=== PATIENT | male | born 1935 | race Caucasian/White ===

== ENCOUNTER 2017-02-12 20:20 | Emergency (ER) | payer MEDICARE, BC ==
--- NOTE | 2017-02-12 20:58 | Emergency Department Record ---
History of Present Illness - General Chief complaint: Lower Extremity Pain Stated complaint: RT LEG PAIN Time Seen by Provider: 02/12/17 20:52 Source: Patient Mode of Arrival: Ambulatory Limitations: No limitations - History of Present Illness Initial comments: 81 yo male presents to ED with a CC of right calf pain described as "aching" following injury while attempting to get out of his truck 2-3 days ago. Patient [place] traumatic injury (fall, direct blow), but feels as though he may have twisted the calf muscles resulting in pain. Patient reports that in the morning his symptoms are mild, but worsen throughout the day with ambulation. Patient denies more swelling than usual, and denies history of DVT. Patient is also on Eliquis for atrial fibrillation. MD Complaint: Extremity pain Onset/Timin -: Days(s) Location: Right, Lower Leg Radiation: Distal Improves with: Elevation, Immobilization Worsens with: Walking, Weight bearing - Related Data Home Medications Medication Instructions Recorded Confirmed Last Taken Aspirin [Aspirin EC] 81 mg PO DAILY 02/28/15 02/12/17 12/18/15 Naproxen Sodium [Aleve] 220 mg PO BID cap 08/19/16 02/12/17 Unknown Onabotulinumtoxina [Botox] 1 unit IJ ASDIR vial 08/19/16 02/12/17 Unknown Allergies Allergy/AdvReac Type Severity Reaction Status Date / Time atorvastatin calcium Allergy Intermediate SWELLING Unverified 01/29/17 09:45 [From Lipitor] (GENERAL) Penicillins Allergy Intermediate PT UNSURE Unverified 01/29/17 09:45 OF REACTION Travel Screening - Travel/Exposure Within Last 30 Days Have you traveled within the last 30 days?: No Review of Systems Constitutional: Denies: Chills, Fever, Malaise, Night sweats Eyes: Denies: Eye discharge, Eye pain ENT: Denies: Congestion, Ear pain, Epistaxis Respiratory: Denies: Cough, Dyspnea Cardiovascular: Denies: Chest pain, Dyspnea on exertion Endocrine: Denies: Fatigue, Heat or cold intolerance Gastrointestinal: Denies: Abdominal pain, Nausea, Vomiting Genitourinary: Denies: Incontinence, Retention Musculoskeletal: Reports: Myalgia. Denies: Arthralgia, Back pain, Gout, Joint swelling Skin: Denies: Bruising, Change in color Neurological: Denies: Abnormal gait, Confusion, Headache, Seizure Psychiatric: Denies: Anxiety Hematological/Lymphatic: Reports: Easy bleeding, Easy bruising. Denies: Anemia , Blood Clots Past Medical History - SOCIAL HISTORY Smoking Status: Never smoker Alcohol Use: None Drug Use: None - RESPIRATORY Hx Respiratory Disorders: Yes Hx Pneumonia: Yes (age 1) - CARDIOVASCULAR Hx Cardio Disorders: Yes Hx Chest Pain: Yes (2 days) Hx Hypertension: Yes Hx Irregular Heartbeat: Yes (Afib after knee surgery years ago) Comment:: High cholestrol - NEURO Hx Neuro Disorders: No - GI Hx GI Disorders: No - Hx Genitourinary Disorders: No - ENDOCRINE Hx Endocrine Disorders: No Hx Diabetes: No Hx Thyroid Disease: No - MUSCULOSKELETAL Hx Musculoskeletal Disorders: Yes Hx Arthritis: Yes - PSYCH Hx Psych Problems: No - HEMATOLOGY/ONCOLOGY Hx Hematology/Oncology Disorders: No Family Medical History Any Significant Family History?: Yes Hx Heart Disease: Father Physical Exam - General General Appearance: Alert, Oriented x3, Cooperative, No acute distress, Other ( ambulates with redman, weight bears at his baseline) Limitations: No limitations - Head Head exam: Atraumatic, Normocephalic, Normal inspection Head exam detail: negative: Abrasion, Contusion, Clark's sign, General tenderness, Hematoma, Laceration - Eye Eye exam: Normal appearance. negative: Conjunctival injection, Periorbital swelling, Periorbital tenderness, Scleral icterus - ENT Ear exam: negative: Auricular hematoma, Auricular trauma Nasal Exam: negative: Active bleeding, Discharge, Dried blood, Foreign body Mouth exam: negative: Drooling, Laceration, Muffled voice, Tongue elevation - Neck Neck exam: Normal inspection. negative: Meningismus, Tenderness - Respiratory Respiratory exam: Normal lung sounds bilaterally. negative: Rales, Respiratory distress, Rhonchi, Stridor - Cardiovascular Cardiovascular Exam: Regular rate, Normal rhythm, Normal heart sounds - GI/Abdominal GI/Abdominal exam: Soft. negative: Rebound, Rigid, Tenderness - Rectal Rectal exam: Deferred - exam: Deferred - Extremities Extremities exam: Calf tenderness, Full ROM, Pedal edema (R>L, 1+ bilaterally), Tenderness (TTP proximal calf) - Back Back exam: Denies: CVA tenderness (R), CVA tenderness (L) - Neurological Neurological exam: Alert, Normal gait, Oriented X3 - Psychiatric Psychiatric exam: Normal affect, Normal mood - Skin Skin exam: Normal color. negative: Abrasion Type of lesion: negative: abrasion Course Vital Signs 02/12/17 20:31 Temperature 98.0 F Pulse Rate [ 80 Pulse Ox Probe] Respiratory 16 Rate Blood Pressure 142/98 [Left Arm] Pulse Ox 96 - Reevaluation(s) Reevaluation #1: 02/12/17 20:57 Diagnosis options were discussed with the patient and his daughter, discussed D- Dimer vs. transfer for doppler, will obtain D-Dimer and discuss options if positive as the patient is overall low-risk for DVT as he takes Eliquis as well as Aspirin daily. Reevaluation #2: 02/12/17 21:37 D-Dimer resulted and is 4.72 Patient is already receiving treatment for DVT taking Eliquis 5 mg BID, in discussion with the family, will d/c home as the patient has no clinical symptoms of PE at this time. Will instruct the patient to return for doppler at 11:00. 02/12/17 21:44 Disposition Disposition: Discharge Clinical Impression: Right calf pain Disposition: Home, Self-Care Condition: (2) Stable Instructions: Leg Cramps (ED) Additional Instructions: Return to ED if your symptoms worsen or if you have any concerns. Return tomorrow at 11:00 for doppler the right lower extremity. Continue Eliquis as directed. Forms: Patient Portal Access Time of Disposition: 21:43
== END 2017-02-12 21:59 | disposition home or self-care (01) ==
LOC: ER 20:20
DX: M79.661 Pain in right lower leg (principal); I48.91 Unspecified atrial fibrillation; R79.89 Other specified abnormal findings of blood chemistry; Z79.01 Long term (current) use of anticoagulants
CPT/HCPCS: 85379; 99283

== ENCOUNTER 2017-02-13 10:36 | Emergency (ER) | payer MEDICARE, BC ==
--- NOTE | 2017-02-13 10:43 | Emergency Department Record ---
History of Present Illness - General Chief Complaint: Recheck - Other Stated Complaint: ULTRASOUND/LEG PAIN Time Seen by Provider: 02/13/17 10:37 Source: Patient Mode of arrival: Ambulatory Limitations: No limitations - History of Present Illness Initial Comments: 81 yo male presents for a recheck of his right calf pain and a venous doppler to rule out DVT. He has had pain for about 3 days. It was first noted getinng out of his vehicle. He has noticed mild swelling and pain with weight bearing. No cough, chest pain or shortness of breath. No history of DVT or PE. He is on Eliquis for AFib. -: Days(s) (3) Initial Visit For: Other Returns Today for: Wound recheck, Other Symptoms Since Prior Visit: No new symptoms Associated Symptoms: None - Related Data Home Medications Medication Instructions Recorded Confirmed Last Taken Aspirin [Aspirin EC] 81 mg PO DAILY 02/28/15 02/13/17 12/18/15 Naproxen Sodium [Aleve] 220 mg PO BID cap 08/19/16 02/13/17 Unknown Onabotulinumtoxina [Botox] 1 unit IJ ASDIR vial 08/19/16 02/13/17 Unknown Allergies Allergy/AdvReac Type Severity Reaction Status Date / Time atorvastatin calcium Allergy Intermediate SWELLING Unverified 01/29/17 09:45 [From Lipitor] (GENERAL) Penicillins Allergy Intermediate PT UNSURE Unverified 01/29/17 09:45 OF REACTION Review of Systems Constitutional: Denies: Chills, Fever, Weakness Eyes: Denies: Eye discharge ENT: Denies: Congestion, Throat pain Respiratory: Denies: Cough Cardiovascular: Reports: As per HPI, Edema. Denies: Chest pain, Palpitations, Syncope Endocrine: Denies: Fatigue Gastrointestinal: Denies: Abdominal pain, Diarrhea, Nausea, Vomiting Genitourinary: Denies: Dysuria, Frequency, Hematuria Musculoskeletal: Reports: As per HPI, Arthralgia, Myalgia Skin: Denies: Bruising, Change in color, Rash Neurological: Denies: Headache Psychiatric: Denies: Anxiety Hematological/Lymphatic: Denies: Blood Clots, Easy bleeding, Easy bruising, Swollen glands Past Medical History - SOCIAL HISTORY Smoking Status: Never smoker Drug Use: None - RESPIRATORY Hx Respiratory Disorders: Yes Hx Pneumonia: Yes (age 1) - CARDIOVASCULAR Hx Cardio Disorders: Yes Hx Chest Pain: Yes (2 days) Hx Hypertension: Yes Hx Irregular Heartbeat: Yes (Afib after knee surgery years ago) Comment:: High cholestrol - NEURO Hx Neuro Disorders: No - GI Hx GI Disorders: No - Hx Genitourinary Disorders: No - ENDOCRINE Hx Endocrine Disorders: No Hx Diabetes: No Hx Thyroid Disease: No - MUSCULOSKELETAL Hx Musculoskeletal Disorders: Yes Hx Arthritis: Yes - PSYCH Hx Psych Problems: No - HEMATOLOGY/ONCOLOGY Hx Hematology/Oncology Disorders: No Family Medical History Hx Heart Disease: Father Physical Exam - General General Appearance: Alert, Oriented x3, Cooperative, No acute distress Limitations: No limitations - Head Head exam: Normal inspection - Eye Eye exam: Normal appearance - ENT ENT exam: Normal exam Ear exam: Normal external inspection Nasal Exam: Normal inspection - Neck Neck exam: Normal inspection - Respiratory Respiratory exam: Normal lung sounds bilaterally. negative: Respiratory distress - Cardiovascular Cardiovascular Exam: Regular rate, Normal rhythm, Normal heart sounds Peripheral Pulses: 2+: Radial (R) - GI/Abdominal GI/Abdominal exam: Soft. negative: Tenderness - Rectal Rectal exam: Deferred - exam: Deferred - Extremities Extremities exam: Calf tenderness, Full ROM, Normal capillary refill, Pedal edema (mild right compared to left), Tenderness. negative: Normal inspection - Back Back exam: Denies: CVA tenderness (R), CVA tenderness (L) - Neurological Neurological exam: Alert, Normal gait, Oriented X3, Reflexes normal - Psychiatric Psychiatric exam: Normal affect, Normal mood - Skin Skin exam: Dry, Intact, Normal color, Warm Course - Reevaluation(s) Reevaluation #1: The XR of the LE was negative for acute process The Venous Doppler demonstrates thrombus in the infra-popliteal vessels, non in the popliteal or more proximal. The patient is on Eliquis already 5mg daily. 02/13/17 12:28 Reevaluation #2: The case was reviewed with the patient's PCP Daisy Bernal The patient can increase his Eliquis to a therapeutic 10mg BID He will have FU established Thursday and Thursday for rechecks as well. He will be given bleeding precautions and reasons to return to the ED 02/13/17 13:26 Reevaluation #3: The labs were reviewed Hgb 12.0 CR is 1.5 similar to prior of 1.4 02/13/17 14:01 Medical Decision Making - Lab Data Result diagrams: 02/13/17 13:36 02/13/17 13:36 Disposition Disposition: Discharge Clinical Impression: DVT (deep venous thrombosis) Qualifiers: DVT location: lower extremity Affected thrombotic vein of extremity: unspecified lower extremity distal vein Laterality: right Chronicity: acute Qualified Code(s): I82.4Z1 - Acute embolism and thrombosis of unspecified deep veins of right distal lower extremity Disposition: Home, Self-Care Condition: (1) Good Instructions: Deep Vein Thrombosis Prevention (ED) Additional Instructions: Increase your Eliquis to 10mg twice daily Follow up Thursday and Thursday as scheduled Return if you have increased pain, swelling, or concerns Return if you see any signs of bleeding. Your appointment with Stephanie in the [facility] is February 18 at 10: 20am Your appointment with Dr Garza in the specialty clinic is on February 25 at 8: 45am Forms: Patient Portal Access Time of Disposition: 13:28
[2017-02-13 13:41] LABS: BASO % 0.6 % (0-6); EOS % 5.4 % (0-6); GRAN % 61.8 % (47-80); HEMATOCRIT 37.2 % (42.0-52.0); LYMPH % 22.8 % (16-45); MEAN CELL VOLUME 92.1 fl (81-97); MEAN CORPUSCULAR HEMOGLOBIN 29.7 pg (27-33); MEAN CORPUSCULAR HGB CONC 32.3 g/dl (32-36); MEAN PLATELET VOLUME 9.1 fl (7.4-10.4); MONO % 9.4 % (0-9); PLATELET COUNT 213 K/uL (130-400); RED BLOOD COUNT 4.04 M/uL (4.40-5.70); RED CELL DISTRIBUTION WIDTH 13.5 % (11.5-14.5); WHITE BLOOD COUNT W/O DIFF 5.2 K/uL (4.2-12.2)
[2017-02-13 13:54] LABS: ALBUMIN 3.5 gm/dL (3.5-5.0); ANION GAP 3.6 (7-16); BILIRUBIN,TOTAL 0.76 mg/dL (0.2-1.3); CARBON DIOXIDE 27.4 mmol/L (22-30); CREATININE 1.5 mg/dL (0.66-1.25); INR 1.12; PARTIAL THROMBOPLASTIN TIME 32.3 SECONDS (24.5-39.1); PROTHROMBIN TIME (PATIENT) 12.7 SECONDS (9.5-12.1); TOTAL PROTEIN 6.9 gm/dL (6.3-8.2)
--- NOTE | 2017-02-17 03:58 | RADIOLOGY REPORT ---
DATE: 02/13/2017 at 12:04 EXAM: TWO-VIEW, RIGHT TIBIA FIBULA. HISTORY: Closed right leg in door. Persistent pain. COMPARISON: None. TECHNIQUE: Two views of the right tibia fibula were obtained. FINDINGS: No fracture. Moderate diffuse soft tissue swelling. Advanced arthritic change, lateral compartment, right knee. IMPRESSION: 1. NEGATIVE FOR ACUTE FRACTURE OF THE RIGHT TIBIA FIBULA. 2. MODERATE SOFT TISSUE SWELLING OF THE RIGHT CALF COULD RELATE TO EDEMA OR CELLULITIS. JOB NUMBER: [id number] [facility]
--- NOTE | 2017-02-17 04:06 | US VENOUS DOPPLER REPORT ---
DATE: 02/13/2017 at 10:45. EXAM: RIGHT LOWER EXTREMITY VENOUS DOPPLER ULTRASOUND. HISTORY: CLOSED RIGHT LEG IN CAR DOOR A FEW DAYS AGO. PERSISTENT PAIN. COMPARISON: Right tibia fibula same day. TECHNIQUE: Real-time lal-scale sonographic imaging of the right lower extremity deep venous system was performed with duplex Doppler and spectral waveform analysis. FINDINGS: Normal color flow and compressibility in the following vessels: Right greater saphenous vein, right common femoral vein, right superficial femoral vein, right profunda femoral vein, right popliteal vein. There is echogenic thrombus and no compressibility of flow within the right peroneal vein , right anterior tibial vein, and right peritoneal vein. There is normal respiratory phasicity on spectral analysis involving the right common femoral vein. IMPRESSION: 1. THROMBUS WITHIN THE RIGHT INFRAPOPLITEAL VESSELS ABOVE. 2. THE RIGHT POPLITEAL VEIN AND MORE PROXIMAL VESSELS OF THE RIGHT LEG ARE PATENT. JOB NUMBER: [id number] [facility]
== END 2017-02-13 14:26 | disposition home or self-care (01) ==
LOC: ER 10:36
DX: I82.421 Acute embolism and thrombosis of right iliac vein (principal); E78.00 Pure hypercholesterolemia, unspecified
CPT/HCPCS: 80053; 85025; 85610; 85730; 99283; 99284

== ENCOUNTER 2017-02-17 07:18 | Emergency (ER) | payer MEDICARE, BC ==
--- NOTE | 2017-02-17 07:42 | Emergency Department Record ---
History of Present Illness - General Chief complaint: Lower Extremity Pain Stated complaint: LEG PAIN Time Seen by Provider: 02/17/17 07:21 Source: Patient Mode of Arrival: Ambulatory Limitations: No limitations - History of Present Illness Initial comments: 81 yo male returns to ED with a CC of increased pain to the right lower extremity after being recently diagnosed with DVT below the knee. Patient had been on Eliquis when he developed the DVT, and Eliquis was doubled to 10 mg BID. Patient report that he has been more active for the past several days as he was told to be less sedentary in the management of his DVT. Patient has been taking Aleve that has not been helping much. Patient is unsure if the pain is from his OA of the right knee vs. his DVT. MD Complaint: Extremity pain, Extremity swelling Onset/Timin -: Days(s) Location: Right, Lower Leg Severity scale (1-10): 3 Quality: Aching, Other Improves with: Nothing Worsens with: Nothing - Related Data Home Medications Medication Instructions Recorded Confirmed Last Taken Aspirin [Aspirin EC] 81 mg PO DAILY 02/28/15 02/17/17 02/17/17 Naproxen Sodium [Aleve] 220 mg PO BID cap 08/19/16 02/17/17 02/17/17 Onabotulinumtoxina [Botox] 1 unit IJ ASDIR vial 08/19/16 02/17/17 02/17/17 Apixaban [Eliquis] 10 mg PO BID 02/17/17 02/17/17 02/17/17 Previous Rx's Medication Instructions Recorded Tramadol HCl 50 mg PO Q6H PRN #15 tab 02/17/17 Allergies Allergy/AdvReac Type Severity Reaction Status Date / Time atorvastatin calcium Allergy Intermediate SWELLING Verified 02/17/17 07:29 [From Lipitor] (GENERAL) Penicillins Allergy Intermediate PT UNSURE Verified 02/17/17 07:29 OF REACTION Travel Screening - Travel/Exposure Within Last 30 Days Have you traveled within the last 30 days?: No - Travel/Exposure Within Last Year Have you traveled outside the [place] in the last year?: No - Additonal Travel Details Have you been exposed to anyone with a communicable illness?: No - Travel Symptoms Symptom Screening: None Review of Systems Constitutional: Denies: Chills, Fever, Malaise, Night sweats Eyes: Denies: Eye discharge, Eye pain ENT: Denies: Congestion, Ear pain, Epistaxis Respiratory: Denies: Cough, Dyspnea Cardiovascular: Denies: Chest pain, Dyspnea on exertion Endocrine: Denies: Fatigue, Heat or cold intolerance Gastrointestinal: Denies: Abdominal pain, Nausea, Vomiting Genitourinary: Denies: Incontinence, Retention Musculoskeletal: Reports: Arthralgia. Denies: Back pain, Gout, Joint swelling Skin: Denies: Bruising, Change in color Neurological: Denies: Abnormal gait, Confusion, Headache, Seizure Psychiatric: Denies: Anxiety Hematological/Lymphatic: Denies: Anemia, Blood Clots Past Medical History - SOCIAL HISTORY Smoking Status: Never smoker Alcohol Use: None Drug Use: None - RESPIRATORY Hx Respiratory Disorders: Yes Hx Pneumonia: Yes (age 1) - CARDIOVASCULAR Hx Cardio Disorders: Yes Hx Chest Pain: Yes (2 days) Hx Hypertension: Yes Hx Irregular Heartbeat: Yes (Afib after knee surgery years ago) Comment:: High cholestrol - NEURO Hx Neuro Disorders: No - GI Hx GI Disorders: No - Hx Genitourinary Disorders: No - ENDOCRINE Hx Endocrine Disorders: No Hx Diabetes: No Hx Thyroid Disease: No - MUSCULOSKELETAL Hx Musculoskeletal Disorders: Yes Hx Arthritis: Yes - PSYCH Hx Psych Problems: No - HEMATOLOGY/ONCOLOGY Hx Hematology/Oncology Disorders: No Family Medical History Any Significant Family History?: No Hx Heart Disease: Father Physical Exam - General General Appearance: Alert, Oriented x3, Cooperative, No acute distress (smiling , well appearing, rates pain at 2-3/10 currently) Limitations: No limitations - Head Head exam: Atraumatic, Normocephalic, Normal inspection Head exam detail: negative: Abrasion, Contusion, Clark's sign, General tenderness, Hematoma, Laceration - Eye Eye exam: Normal appearance. negative: Conjunctival injection, Periorbital swelling, Periorbital tenderness, Scleral icterus - ENT Ear exam: negative: Auricular hematoma, Auricular trauma Nasal Exam: negative: Active bleeding, Discharge, Dried blood, Foreign body Mouth exam: negative: Drooling, Laceration, Muffled voice, Tongue elevation - Neck Neck exam: Normal inspection. negative: Meningismus, Tenderness - Respiratory Respiratory exam: Normal lung sounds bilaterally. negative: Rales, Respiratory distress, Rhonchi, Stridor - Cardiovascular Cardiovascular Exam: Regular rate, Normal rhythm, Normal heart sounds - GI/Abdominal GI/Abdominal exam: Soft. negative: Rebound, Rigid, Tenderness - Rectal Rectal exam: Deferred - exam: Deferred - Extremities Extremities exam: Calf tenderness, Pedal edema, Other - Back Back exam: Denies: CVA tenderness (R), CVA tenderness (L) - Neurological Neurological exam: Alert, Normal gait, Oriented X3 - Psychiatric Psychiatric exam: Normal affect, Normal mood - Skin Skin exam: Normal color. negative: Abrasion Type of lesion: negative: abrasion Course Vital Signs 02/17/17 07:20 Temperature 97.4 F L Pulse Rate 75 Respiratory 16 Rate Pulse Ox 95 - Reevaluation(s) Reevaluation #1: 02/17/17 09:03 Doppler RLE: No significant change from previous, no progression of DVT. Patient was updated on all results, will trial Tramadol at night for pain symptoms as needed. Patient agrees with the plan of care as discussed and appears stable for discharge at this time. 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 Tramadol as needed for your leg pain. Follow-up with Stephanie as scheduled tomorrow. Prescriptions: Tramadol HCl 50 mg PO Q6H PRN #15 tab PRN Reason: Pain - Moderate (5-7) Forms: Patient Portal Access Time of Disposition: 09:06
--- NOTE | 2017-02-18 15:03 | US VENOUS DOPPLER REPORT ---
EXAM: RIGHT LOWER EXTREMITY DUPLEX VENOUS DOPPLER ULTRASOUND HISTORY: THROMBUS. TECHNIQUE: Transverse and longitudinal sonographic images of the right lower extremity deep venous system were obtained. Comparison: 02/13/17 ultrasound. FINDINGS: Redemonstrated are areas of non-compressibility and visible thrombus formation involving the right infrapopliteal veins of the calf. The popliteal vein and the remainder of the deep venous system proximal to the popliteal vein appear patent with normal compressibility and augmentation. Doppler and spectral analysis with colon flow was utilized. Normal waveforms proximally with lack of normal waveforms involving the calf venous structures. IMPRESSION: LITTLE CHANGE FROM THE RECENT RIGHT LOWER EXTREMITY DUPLEX VENOUS ULTRASOUND. PERSISTENT THROMBUS AND NON-COMPRESSIBILITY INVOLVING THE RIGHT INFRAPOPLITEAL VEINS. JOB NUMBER: [id number] [facility]
== END 2017-02-17 09:23 | disposition home or self-care (01) ==
LOC: ER 07:18
DX: I82.5Z1 Chronic embolism and thrombosis of unspecified deep veins of right distal lower extremity (principal)
CPT/HCPCS: 99283

== ENCOUNTER 2017-03-06 01:29 | Emergency (ER) | payer MEDICARE, BC ==
[2017-03-06 02:02] LABS: BASO % 0.9 % (0-6); EOS % 6.2 % (0-6); GRAN % 51.7 % (47-80); HEMATOCRIT 37.8 % (42.0-52.0); HEMOGLOBIN 11.8 gm/dl (14.0-18.0); LYMPH % 29.6 % (16-45); MEAN CELL VOLUME 93.6 fl (81-97); MEAN CORPUSCULAR HEMOGLOBIN 29.2 pg (27-33); MEAN CORPUSCULAR HGB CONC 31.2 g/dl (32-36); MEAN PLATELET VOLUME 9.4 fl (7.4-10.4); MONO % 11.6 % (0-9); PLATELET COUNT 165 K/uL (130-400); RED BLOOD COUNT 4.04 M/uL (4.40-5.70); RED CELL DISTRIBUTION WIDTH 14.6 % (11.5-14.5); WHITE BLOOD COUNT W/O DIFF 4.2 K/uL (4.2-12.2)
--- NOTE | 2017-03-06 02:11 | Emergency Department Record ---
History of Present Illness - General Chief Complaint: Shortness of breath Stated Complaint: KAN Time Seen by Provider: 03/06/17 01:38 Source: Patient, Family Mode of Arrival: Ambulatory Limitations: No limitations - History of Present Illness Initial Comments: 81 yo male presents to ED with a CC of shortness of breath upon awakening this morning. Patient reports that his symptoms have since resolved. Patient reports recent diagnosis of several below the knee DVTs despite being on Eliquis for his atrial fibrillation 2 weeks ago. Patient also reports intermittent atrial fibrillation but is not normally in atrial fibrillation. Patient also reprots increased LE edema bilaterally. Patient denies recent fevers, chills, or cough symptoms. MD Complaint: Shortness of breath Onset/Timin -: Minutes(s) Consistency: Intermittent Improves With: Upright position Worsens With: Lying flat Known History Of: DVT Associated Symptoms: Edema, lower extremity pain, Orthopnia Treatments Prior to Arrival: None - Related Data Home Oxygen Therapy: No Home Medications Medication Instructions Recorded Confirmed Last Taken Aspirin [Aspirin EC] 81 mg PO DAILY 02/28/15 03/06/17 03/05/17 Naproxen Sodium [Aleve] 220 mg PO BID cap 08/19/16 03/06/17 03/05/17 Onabotulinumtoxina [Botox] 1 unit IJ ASDIR vial 08/19/16 03/06/17 02/17/17 Apixaban [Eliquis] 10 mg PO BID 02/17/17 03/06/17 03/05/17 Previous Rx's Medication Instructions Recorded Tramadol HCl 50 mg PO Q6H PRN #15 tab 02/17/17 Allergies Allergy/AdvReac Type Severity Reaction Status Date / Time atorvastatin calcium Allergy Intermediate SWELLING Unverified 02/27/17 07:21 [From Lipitor] (GENERAL) Penicillins Allergy Intermediate PT UNSURE Unverified 02/27/17 07:21 OF REACTION Travel Screening - Travel/Exposure Within Last 30 Days Have you traveled within the last 30 days?: No Review of Systems Constitutional: Denies: Chills, Fever, Malaise, Night sweats Eyes: Denies: Eye discharge, Eye pain ENT: Denies: Congestion, Ear pain, Epistaxis Respiratory: Reports: Dyspnea. Denies: Cough, Stridor, Wheezes Cardiovascular: Reports: Edema. Denies: Chest pain, Dyspnea on exertion Endocrine: Denies: Fatigue, Heat or cold intolerance Gastrointestinal: Denies: Abdominal pain, Nausea, Vomiting Genitourinary: Denies: Incontinence, Retention Musculoskeletal: Denies: Arthralgia, Back pain, Gout, Joint swelling Skin: Denies: Bruising, Change in color Neurological: Denies: Abnormal gait, Confusion, Headache, Tingling Psychiatric: Denies: Anxiety Hematological/Lymphatic: Reports: Blood Clots, Easy bleeding, Easy bruising. Denies: Anemia Past Medical History - SOCIAL HISTORY Smoking Status: Never smoker Alcohol Use: None Drug Use: None - RESPIRATORY Hx Respiratory Disorders: Yes Hx Pneumonia: Yes (age 1) - CARDIOVASCULAR Hx Cardio Disorders: Yes Hx Chest Pain: Yes (2 days) Hx Hypertension: Yes Hx Irregular Heartbeat: Yes (Afib after knee surgery years ago) Comment:: High cholestrol - NEURO Hx Neuro Disorders: No - GI Hx GI Disorders: No - Hx Genitourinary Disorders: No - ENDOCRINE Hx Endocrine Disorders: No Hx Diabetes: No Hx Thyroid Disease: No - MUSCULOSKELETAL Hx Musculoskeletal Disorders: Yes Hx Arthritis: Yes - PSYCH Hx Psych Problems: No - HEMATOLOGY/ONCOLOGY Hx Hematology/Oncology Disorders: No Family Medical History Any Significant Family History?: No Hx Heart Disease: Father Physical Exam - General General Appearance: Alert, Oriented x3, Cooperative, No acute distress Limitations: No limitations - Head Head exam: Atraumatic, Normocephalic, Normal inspection Head exam detail: negative: Abrasion, Contusion, Clark's sign, General tenderness, Hematoma, Laceration - Eye Eye exam: Normal appearance. negative: Conjunctival injection, Periorbital swelling, Periorbital tenderness, Scleral icterus - ENT Ear exam: negative: Auricular hematoma, Auricular trauma Nasal Exam: negative: Active bleeding, Discharge, Dried blood Mouth exam: negative: Drooling, Laceration, Tongue elevation - Neck Neck exam: Normal inspection. negative: Meningismus, Tenderness - Respiratory Respiratory exam: Normal lung sounds bilaterally. negative: Respiratory distress, Rhonchi, Stridor, Wheezes - Cardiovascular Cardiovascular Exam: Irregular rhythm - GI/Abdominal GI/Abdominal exam: Soft. negative: Organomegaly, Rebound, Rigid, Tenderness - Rectal Rectal exam: Deferred - exam: Deferred - Extremities Extremities exam: Pedal edema. negative: Tenderness - Back Back exam: Denies: CVA tenderness (R), CVA tenderness (L) - Neurological Neurological exam: Alert, Normal gait, Oriented X3 - Psychiatric Psychiatric exam: Normal affect, Normal mood - Skin Skin exam: Normal color. negative: Abrasion Type of lesion: negative: abrasion Course Vital Signs 03/06/17 01:40 Temperature 98.7 F Pulse Rate [ 76 Pulse Ox Probe] Respiratory 20 Rate Blood Pressure 135/97 [Left Arm] Pulse Ox 96 - Reevaluation(s) Reevaluation #1: 03/06/17 02:09 EKG: Atrial fibrillation 76 LAD T wave inversions I, AVL, V5, V6 T wave changes appear new from 12/18/15. Reevaluation #2: 03/06/17 02:27 Labs reviewed, GFR 52 (21/1.4) c/w moderate decreased renal function. Hgb 11.8 , Troponin is pending. Awaiting CXR as well for further evaluation. Reevaluation #3: 03/06/17 02:47 CXR: ? RML infiltrate, cardiomegaly Reevaluation #4: 03/06/17 03:32 Case was discussed with Dr. Downing, will accept transfer. 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
[2017-03-06 02:20] LABS: ALB/GLOB RATIO 1.1 (1.1-1.8); ALBUMIN 3.7 gm/dL (3.5-5.0); ALKALINE PHOSPHATASE 106 U/L (38-126); ALT/SGPT 30 U/L (21-72); AST/SGOT 29 U/L (17-59); BILIRUBIN,TOTAL 0.84 mg/dL (0.2-1.3); BLOOD UREA NITROGEN 21 mg/dL (9-20); CREATINE PHOSPHOKINASE 118 U/L (55-170); CREATININE 1.4 mg/dL (0.66-1.25); EST GLOMERULAR FILTRATION RATE 52 ml/min; GLUCOSE,RANDOM 119 mg/dL (70-110); TOTAL PROTEIN 7.1 gm/dL (6.3-8.2)
[2017-03-06 02:37] LABS: CKMB 1.4 ng/mL (0-4.3); TROPONIN I < 0.050 ng/mL (0.0-0.4)
--- NOTE | 2017-03-06 16:37 | RADIOLOGY REPORT ---
EXAM: CHEST 2 VIEWS HISTORY: DIFFICULTY IN BREATHING, CHEST CONGESTION. TECHNIQUE: PA and lateral views. COMPARISON: Two-view chest, 12/18/15. FINDINGS: Cardiomegaly again seen. Calcification and torsion of the aorta. Pulmonary vascularity is probably at about the upper limits of normal. When comparison is made to the prior study, no definite acute infiltrate is seen with some minor linear fibrosis or discoid atelectasis in both bases. No pleural effusion or pneumothorax evident. Some chronic bone densities about the left AC joint. IMPRESSION: 1. STABLE CARDIOMEGALY. 2. MILD BIBASILAR LINEAR FIBROSIS OR DISCOID ATELECTASIS. 3. CALCIFICATION AND TORSION OF THE AORTA. JOB NUMBER: [id number] MTDD
== END 2017-03-06 04:43 | disposition short-term general hospital (02) ==
LOC: ER 01:29
DX: R60.0 Localized edema (principal); I48.91 Unspecified atrial fibrillation; I82.521 Chronic embolism and thrombosis of right iliac vein; Z79.4 Long term (current) use of insulin
CPT/HCPCS: 71020; 80053; 82550; 82553; 84484; 85025; 93005; 93010; 99285

== ENCOUNTER 2017-10-31 23:54 | Emergency (ER) | payer MEDICARE, BC ==
--- NOTE | 2017-11-01 00:08 | Emergency Department Record ---
History of Present Illness - General Chief Complaint: Fall Injury Stated Complaint: PAIN Time Seen by Provider: 11/01/17 00:06 Mode of Arrival: Ambulatory - History of Present Illness Onset/Timin -: Days(s) Fall From: Standing When Fall Occurred: # Days [employer] Fall Witnessed: No Place Fall Occurred: Home Loss of Consciousness: None Prolonged Down Time?: No Symptoms Prior to Fall: None Severity: Mild Context: Tripped/slipped Associated Symptoms: Denies - [place] Coma Scale Eye Response: (4) Open spontaneously Motor Response: (6) Obeys commands Verbal Response: (5) Oriented [place] Total: 15 - Related Data Allergies Allergy/AdvReac Type Severity Reaction Status Date / Time atorvastatin calcium Allergy Intermediate SWELLING Unverified 05/29/17 14:15 [From Lipitor] (GENERAL) Penicillins Allergy Intermediate PT UNSURE Unverified 05/29/17 14:15 OF REACTION Travel Screening - Travel/Exposure Within Last 30 Days Have you traveled within the last 30 days?: No - Travel/Exposure Within Last Year Have you traveled outside the [place] in the last year?: No - Additonal Travel Details Have you been exposed to anyone with a communicable illness?: No - Travel Symptoms Symptom Screening: None Past Medical History - SOCIAL HISTORY Smoking Status: Never smoker Alcohol Use: None Drug Use: None - RESPIRATORY Hx Respiratory Disorders: Yes Hx Pneumonia: Yes (age 1) - CARDIOVASCULAR Hx Cardio Disorders: Yes Hx Chest Pain: Yes (2 days) Hx Hypertension: Yes Hx Irregular Heartbeat: Yes (Afib after knee surgery years ago) Comment:: High cholestrol - NEURO Hx Neuro Disorders: No - GI Hx GI Disorders: No - Hx Genitourinary Disorders: No - ENDOCRINE Hx Endocrine Disorders: No Hx Diabetes: No Hx Thyroid Disease: No - MUSCULOSKELETAL Hx Musculoskeletal Disorders: Yes Hx Arthritis: Yes - PSYCH Hx Psych Problems: No - HEMATOLOGY/ONCOLOGY Hx Hematology/Oncology Disorders: No Family Medical History Any Significant Family History?: No Hx Heart Disease: Father Course Vital Signs 10/31/17 23:59 Temperature 97.7 F Pulse Rate [ 69 Pulse Ox Probe] Respiratory 20 Rate Blood Pressure 185/124 [Left Arm] Pulse Ox 97 - Reevaluation(s) Reevaluation #1: 11/01/17 00:07 Atrial fibrillation 63 LAD, IVCD T wave inversions I, AVL Unchanged from 03/06/17 Disposition Quality - Blood Pressure Screening Does Patient Have Any of the Following: No Blood Pressure Classification: Hypertensive Reading Systolic Measurement: 185 Diastolic Measurement: 124
--- NOTE | 2017-11-01 00:16 | Emergency Department Record ---
History of Present Illness - General Chief Complaint: Abdominal Pain Stated Complaint: PAIN Time Seen by Provider: 11/01/17 00:06 Source: Patient Mode of Arrival: Ambulatory Limitations: No limitations - History of Present Illness Initial Comments: 82 yo male presents to ED for feeling "full" in the abdomen, reports having increased difficulty having a bowel movement. Patient denies abdominal apin, vomiting, fevers, chills, or recent illness. Patient reports having a BM earlier this evening but it was smaller then usual. Patient also reports a fall 3 days ago into a snow bank, denies injury to the head or neck, and does not use anticoagulation medications. MD Complaint: Other (fullness) Onset/Timin -: Days(s) Location: Diffuse Radiation: None Migration to: No migration Severity: Mild Consistency: Constant Improves With: Nothing Worsens With: Nothing Associated Symptoms: Denies other symptoms - Related Data Home Medications Medication Instructions Recorded Confirmed Last Taken Apixaban [Eliquis] 5 mg PO DAILY 11/01/17 11/01/17 Unknown Previous Rx's Medication Instructions Recorded Polyethylene Glycol 3350 [Miralax] 1 packet PO DAILY #15 packet 11/01/17 Allergies Allergy/AdvReac Type Severity Reaction Status Date / Time atorvastatin calcium Allergy Intermediate SWELLING Verified 11/01/17 00:12 [From Lipitor] (GENERAL) Penicillins Allergy Intermediate PT UNSURE Verified 11/01/17 00:12 OF REACTION Travel Screening - Travel/Exposure Within Last 30 Days Have you traveled within the last 30 days?: No - Travel/Exposure Within Last Year Have you traveled outside the [place] in the last year?: No - Additonal Travel Details Have you been exposed to anyone with a communicable illness?: No - Travel Symptoms Symptom Screening: None Review of Systems Constitutional: Denies: Chills, Fever, Malaise, Night sweats Eyes: Denies: Eye discharge, Eye pain ENT: Denies: Congestion, Ear pain, Epistaxis Respiratory: Denies: Cough, Dyspnea Cardiovascular: Denies: Chest pain, Dyspnea on exertion Endocrine: Denies: Fatigue, Heat or cold intolerance Gastrointestinal: Denies: Constipation, Vomiting Genitourinary: Denies: Incontinence, Retention Musculoskeletal: Denies: Arthralgia, Back pain, Gout, Joint swelling Skin: Denies: Bruising, Change in color Neurological: Denies: Abnormal gait, Confusion, Headache, Seizure Psychiatric: Denies: Anxiety Hematological/Lymphatic: Denies: Anemia, Blood Clots Past Medical History - SOCIAL HISTORY Smoking Status: Never smoker Alcohol Use: None Drug Use: None - RESPIRATORY Hx Respiratory Disorders: Yes Hx Pneumonia: Yes (age 1) - CARDIOVASCULAR Hx Cardio Disorders: Yes Hx Chest Pain: Yes (2 days) Hx Hypertension: Yes Hx Irregular Heartbeat: Yes (Afib after knee surgery years ago) Comment:: High cholestrol - NEURO Hx Neuro Disorders: No - GI Hx GI Disorders: No - Hx Genitourinary Disorders: No - ENDOCRINE Hx Endocrine Disorders: No Hx Diabetes: No Hx Thyroid Disease: No - MUSCULOSKELETAL Hx Musculoskeletal Disorders: Yes Hx Arthritis: Yes - PSYCH Hx Psych Problems: No - HEMATOLOGY/ONCOLOGY Hx Hematology/Oncology Disorders: No Family Medical History Any Significant Family History?: No Hx Heart Disease: Father Physical Exam - General General Appearance: Alert, Oriented x3, Cooperative, No acute distress Limitations: No limitations - Head Head exam: Atraumatic, Normocephalic, Normal inspection Head exam detail: negative: Abrasion, Contusion, Clark's sign, General tenderness, Hematoma, Laceration - Eye Eye exam: Normal appearance. negative: Conjunctival injection, Periorbital swelling, Periorbital tenderness, Scleral icterus - ENT Ear exam: negative: Auricular hematoma, Auricular trauma Nasal Exam: negative: Active bleeding, Discharge, Dried blood, Foreign body Mouth exam: negative: Drooling, Laceration, Muffled voice, Tongue elevation - Neck Neck exam: Normal inspection. negative: Meningismus, Tenderness - Respiratory Respiratory exam: Normal lung sounds bilaterally. negative: Rales, Respiratory distress, Rhonchi, Stridor - Cardiovascular Cardiovascular Exam: Normal heart sounds, Irregular rhythm - GI/Abdominal GI/Abdominal exam: Soft, Distended, Other (No pain on palpation). negative: Rebound, Rigid, Tenderness - Rectal Rectal exam: Deferred - exam: Deferred - Extremities Extremities exam: Normal inspection. negative: Pedal edema, Tenderness - Back Back exam: Denies: CVA tenderness (R), CVA tenderness (L) - Neurological Neurological exam: Alert, Normal gait, Oriented X3 - Psychiatric Psychiatric exam: Normal affect, Normal mood - Skin Skin exam: Normal color. negative: Abrasion Type of lesion: negative: abrasion Course Vital Signs 10/31/17 23:59 Temperature 97.7 F Pulse Rate [ 69 Pulse Ox Probe] Respiratory 20 Rate Blood Pressure 185/124 [Left Arm] Pulse Ox 97 - Reevaluation(s) Reevaluation #1: 11/01/17 00:49 AAS: Chronic changes chest, stool throughout the colon. Patient was updated on his results, will prescribe Miralax for constipation symptoms with instructions for follow-up with his PCP in 2-3 days. Disposition Disposition: Discharge Clinical Impression: Constipation Qualifiers: Constipation type: unspecified constipation type Qualified Code(s): K59.00 - Constipation, unspecified Disposition: Home, Self-Care Condition: (2) Stable Instructions: Constipation (ED) Additional Instructions: Return to ED if your symptoms worsen or if you have any concerns. Miralax as directed. Follow-up with your family doctor in 3-5 days as directed. Prescriptions: Polyethylene Glycol 3350 [Miralax] 1 packet PO DAILY #15 packet Forms: Patient Portal Access Time of Disposition: 00:52 Quality - Quality Measures Quality Measures: N/A - Blood Pressure Screening Does Patient Have Any of the Following: Active Dx of HTN Blood Pressure Classification: Hypertensive Reading Systolic Measurement: 185 Diastolic Measurement: 124 Screening for High Blood Pressure: Patient Exclusion, Hx of HTN [G9744]
[2017-11-01] MEDS ORDERED: POLYETHYLENE GLY 17 GM PACKET PO ONE (00:55)
--- NOTE | 2017-11-02 07:20 | RADIOLOGY REPORT ---
EXAM: ACUTE ABDOMEN SERIES HISTORY: LEFT UPPER QUADRANT ABDOMINAL PAIN. FEELS FULL. TECHNIQUE: A PA upright view of the chest and supine and upright AP views of the abdomen were obtained. Comparison: 05/22/17. FINDINGS: The heart is mildly enlarged, but stable. There is calcification and tortuosity of the aorta. Chronic interstitial changes are present at the lung bases. There are no acute infiltrates or effusions. There is no pneumothorax. Post surgical and degenerative changes are present within both shoulders. Dextroconvex scoliosis is noted within the thoracic spine. The abdominal gas pattern is nonobstructive. Mild stool and air are present throughout the colon. There is no pneumoperitoneum. There is no organomegaly or visible urinary tract calculus. Levoconvex scoliosis and degenerative changes are present within the lumbar spine. IMPRESSION: 1. NO ACUTE CHEST OR ABDOMINAL PATHOLOGY. 2. STABLE CARDIOMEGALY AND CHRONIC INTERSTITIAL CHANGES. 3. MILD STOOL AND AIR THROUGHOUT THE COLON. JOB NUMBER: [id number] [facility]
== END 2017-11-01 01:05 | disposition home or self-care (01) ==
LOC: ER 23:54
DX: K59.00 Constipation, unspecified (principal); R10.12 Left upper quadrant pain; I10 Essential (primary) hypertension; I48.91 Unspecified atrial fibrillation; Z79.01 Long term (current) use of anticoagulants
CPT/HCPCS: 74022; 93005; 93010; 99284

== ENCOUNTER 2017-12-02 08:49 | Observation (INO) | payer MEDICARE, BC ==
--- NOTE | 2017-12-02 09:18 | Emergency Department Record ---
History of Present Illness - General Chief Complaint: Palpitations Stated Complaint: AFIB Time Seen by Provider: 12/02/17 09:05 Source: Patient Mode of Arrival: Ambulatory Limitations: No limitations - History of Present Illness Initial Comments: The patient is here due to waking up this AM and feeling weak. He then noticed the veins protruding from his neck and got nervous so he took his BP and it was elevated along with his HR. The patient states his HR was around 100. Due to that he called his daughter who came over and found him feeling better but since he had the issues she wanted him checked out. The patient denies any recent pain, SOB, KAN, HSU, or sweating. He does have a hx of chronic Afib on Eliquis. Complaint: Atrial fibrillation Onset/Timin -: Hour(s) Context: Other Arrythmia History: Atrial fibrillation, On anti-coagulants Associated Symptoms: Denies other symptoms - Related Data Home Medications Medication Instructions Recorded Confirmed Last Taken Atenolol [Atenolol] 50 mg PO DAILY 12/02/17 12/02/17 12/02/17 09:00 Tramadol HCl [Tramadol HCl] 50 mg PO QHS PRN 12/02/17 12/02/17 12/01/17 22:00 Allergies Allergy/AdvReac Type Severity Reaction Status Date / Time atorvastatin calcium Allergy Intermediate SWELLING Verified 12/02/17 08:53 [From Lipitor] (GENERAL) Penicillins Allergy Intermediate PT UNSURE Verified 12/02/17 08:53 OF REACTION Travel Screening - Travel/Exposure Within Last 30 Days Have you traveled within the last 30 days?: No - Travel/Exposure Within Last Year Have you traveled outside the [place] in the last year?: No - Additonal Travel Details Have you been exposed to anyone with a communicable illness?: No - Travel Symptoms Symptom Screening: None Review of Systems Constitutional: Denies: Chills, Fever Eyes: Denies: Eye discharge ENT: Denies: Congestion, Throat pain Respiratory: Denies: Cough, Dyspnea Past Medical History - SOCIAL HISTORY Smoking Status: Never smoker Alcohol Use: None Drug Use: None - RESPIRATORY Hx Respiratory Disorders: Yes Hx Pneumonia: Yes (age 1) - CARDIOVASCULAR Hx Cardio Disorders: Yes Hx Chest Pain: Yes (2 days) Hx Hypertension: Yes Hx Irregular Heartbeat: Yes (Afib after knee surgery years ago) Comment:: High cholestrol - NEURO Hx Neuro Disorders: No - GI Hx GI Disorders: No - Hx Genitourinary Disorders: No - ENDOCRINE Hx Endocrine Disorders: No Hx Diabetes: No Hx Thyroid Disease: No - MUSCULOSKELETAL Hx Musculoskeletal Disorders: Yes Hx Arthritis: Yes - PSYCH Hx Psych Problems: No - HEMATOLOGY/ONCOLOGY Hx Hematology/Oncology Disorders: No Family Medical History Any Significant Family History?: Yes Hx Heart Disease: Father Physical Exam - General General Appearance: Alert, Oriented x3, Cooperative, No acute distress - Head Head exam: Atraumatic, Normocephalic, Normal inspection - Eye Eye exam: Normal appearance, PERRL - Neck Neck exam: Normal inspection, Full ROM. negative: Lymphadenopathy, Tenderness - Respiratory Respiratory exam: Normal lung sounds bilaterally. negative: Respiratory distress - Cardiovascular Cardiovascular Exam: Irregular rhythm. negative: Systolic murmur, Tachycardia - GI/Abdominal GI/Abdominal exam: Soft, Normal bowel sounds. negative: Tenderness - Extremities Extremities exam: Normal inspection, Full ROM, Normal capillary refill. negative: Tenderness - Neurological Neurological exam: Alert. negative: Motor sensory deficit Course Vital Signs 12/02/17 08:56 Temperature 97.4 F L Pulse Rate 79 Respiratory 18 Rate Blood Pressure 159/105 Pulse Ox 95 - Reevaluation(s) Reevaluation #1: The patient is doing very well at this time. He denies any CP or SOB. I did discuss the indeterminent Troponin with the patient and the need for further evaluation. I then did discuss the case with Dr. Reed([facility]) and he will consult on the patient in the ED. 12/02/17 10:49 Reevaluation #2: Dr. Reed did recommend admitting the patient here at [facility]. I then did discuss the case with Dr. Reddy and he will admit the patient here. 12/02/17 11:05 Medical Decision Making - Data Complexity MDM Data: EKG Ordered and/or Reviewed - Lab Data Result diagrams: 12/02/17 09:20 12/02/17 09:20 - EKG Data -: EKG Interpreted by Me EKG: No Acute Changes, Unchanged From Previous Disposition Disposition: Admit Clinical Impression: Cardiac ischemia Disposition: Still a Patient at [facility] Decision to Admit: Admit from ER Decision to Admit Date: 12/02/17 Decision to Admit Time: 11:06 Accepting Physician: Maureen Time Discussed w/Accepting Physician: 11:07 Condition: (2) Stable Time of Disposition: 11:07 Quality - Quality Measures Quality Measures: N/A - Blood Pressure Screening View Details: Yes Does Patient Have Any of the Following: Active Dx of HTN Blood Pressure Classification: Hypertensive Reading Systolic Measurement: 142 Diastolic Measurement: 102 Screening for High Blood Pressure: Patient Exclusion, Hx of HTN [G9744]
[2017-12-02 09:26] LABS: BASO % 0.4 % (0-6); EOS % 4.4 % (0-6); HEMATOCRIT 38.5 % (42.0-52.0); HEMOGLOBIN 12.3 gm/dl (14.0-18.0); LYMPH % 17.2 % (16-45); MEAN CELL VOLUME 92.3 fl (81-97); MEAN CORPUSCULAR HEMOGLOBIN 29.4 pg (27-33); MEAN CORPUSCULAR HGB CONC 31.9 g/dl (32-36); MEAN PLATELET VOLUME 9.2 fl (7.4-10.4); PLATELET COUNT 164 K/uL (130-400); RED BLOOD COUNT 4.17 M/uL (4.40-5.70); RED CELL DISTRIBUTION WIDTH 14.7 % (11.5-14.5)
[2017-12-02 09:40] LABS: BILIRUBIN,TOTAL 0.7 mg/dL (0.2-1.0); CREATININE 1.3 mg/dL (0.7-1.2)
[2017-12-02 09:41] LABS: TOTAL PROTEIN 6.8 g/dL (6.6-8.7)
[2017-12-02 09:42] LABS: INR 1.1; PARTIAL THROMBOPLASTIN TIME 31.3 SECONDS (24.5-39.1)
[2017-12-02 09:46] LABS: ALB/GLOB RATIO 1.2 (1.1-1.8); ALBUMIN 3.7 g/dL (4.0-5.0)
[2017-12-02 09:48] LABS: CKMB 3.5 ng/mL (<6.73)
[2017-12-02] MEDS ORDERED: ASPIRIN 81 MG CHEWABLE TABLET PO ONE (11:10)
--- NOTE | 2017-12-02 15:21 | Medical Records Consult ---
DATE OF CONSULTATION: 12/02/2017 HISTORY OF PRESENT ILLNESS: The patient is a very healthy 82-year-old male well known to I. He usually sees Dr. Umer Garza. 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 On the morning of his admission to the emergency room, he took his blood pressure and it was, he felt, high at 160/90 range and he felt some palpitations on the right side of his neck. He has chronic pain in his left shoulder. He does not have any specific chest discomfort that I was able to garnish from the history that I took. He has had no recent shortness of breath, pretibial edema, syncope, or presyncope and as stated above, he does have chronic atrial fibrillation. In the emergency room, I carefully looked at his electrocardiogram. It is unchanged from multiple previous tracings with no acute changes noted. His serial serum CPK was in the normal range, as was the MB. He had an intermediate troponin level. REVIEW OF SYSTEMS: Done by the emergency room physician. These findings were reviewed and confirmed with the patient as well as his daughter. PAST MEDICAL HISTORY: Also well documented on the chart. No additions are necessary. PHYSICAL EXAMINATION: GENERAL: A well-nourished, well-hydrated male resting comfortably in the emergency department. Able to answer questions. No evidence of any type of chest discomfort at this point. HEART: The heart sounds are clear. The patient's rhythm is irregular. No cardiac murmurs are noted. ENT: No lymphadenopathy. No JVD. No bruits. LUNGS: Clear to auscultation in all listening posts. EXTREMITIES: No evidence of pretibial edema. GASTROINTESTINAL: Normal bowel sounds. No pain to palpation. IMPRESSION: 1. Chronic atrial fibrillation. 2. Precordial discomfort is noncardiac in etiology. 3. Mild elevation of troponin with EKG changes or elevation of his CPK. PLAN: With the mild elevation of troponin, I think we need to finish the trending to see what direction it is going to go. If it remains in an intermediate range, then I think he can easily be discharged in the morning. He does have a nuclear scan that shows evidence of lateral wall ischemia. His current clinical presentation is noncardiac. MTDD
--- NOTE | 2017-12-02 15:21 | History and Physical Report ---
DATE: 12/02/2017 CHIEF COMPLAINT: Palpitations. HISTORY OF PRESENT ILLNESS: This 82-year-old male presented to the emergency department and he stated he noticed his heart beating in his chest. He felt palpitations, never felt that before. 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 He felt his heart was running at about 100 beats per minute. It was irregular. He has never felt his AFib before. He was concerned about that. He had no chest pain but he just checked his blood pressure, came into the hospital for evaluation. Blood pressure was elevated. He is normally on Eliquis for his chronic atrial fibrillation. He was evaluated by Dr. Alvarez and admitted to the hospital for serial cardiac enzymes and further evaluation. Dr. Reed saw the patient in the emergency department. He normally sees Dr. Garza or Dr. Reed for his cardiac needs. He had a Cardiolite stress test which showed some ischemia a year or two ago but they opted not to do any further testing at that time. PAST MEDICAL HISTORY: Coronary artery disease, chronic atrial fibrillation on Eliquis therapy, hypercholesterolemia. He has arthritis. PAST SURGICAL HISTORY: Shoulder surgery, knee surgery, and arm surgery. MEDICATIONS: 1. Tramadol 50 mg at h.s. p.r.n. 2. Atenolol 50 mg daily. 3. Eliquis 5 mg b.i.d. 4. Crestor 10 mg at h.s. 5. Botox p.r.n. 6. Lisinopril 10 mg b.i.d. 7. Bisacodyl 5 mg daily p.r.n. for constipation. 8. Aspirin 81 mg a day. ALLERGIES: ATORVASTATIN, CALCIUM, PENICILLIN. FAMILY/PSYCHOSOCIAL HISTORY: No alcohol or drug use or smoking history. Family history is unremarkable. REVIEW OF SYSTEMS: HEENT: No diplopia, blurred vision, sinus congestion, or cough. Cardiovascular: No chest pain. He did have palpitation. He saw his heart beating in his neck and chest. 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 He was concerned about his heart beating in his neck and chest. Respiratory: No cough, cold, or congestion. Gastrointestinal: No nausea, vomiting, diarrhea, black stools, or bloody stools. Genitourinary: No dysuria, hematuria, frequency, or burning on urination. Musculoskeletal: He has arthritis in the arms, legs, shoulders, hands. Neurological: No CVA, paralysis, or paresthesias. Endocrine: No diabetes or thyroid disease. Integument: No rash, ulcers, change in moles, or yellow skin. PHYSICAL EXAMINATION: VITALS: Height 5 feet 9 inches, weight 215 pounds. Temperature 98.1, pulse 69, blood pressure 155/94, respiratory rate 18, pulse ox 98% on room air. HEENT: Pupils are equal, round, and reactive to light and accommodation. Extraocular muscles are intact. Throat is clear. Nose is clear. Tympanic membranes are lal. NECK: Supple. No jugular venous distention. No hepatojugular reflux. No carotid bruits. Thyroid is smooth. CARDIOVASCULAR: Irregular rate but rate is controlled. RESPIRATORY: Breath sounds are equal bilaterally. ABDOMEN: Soft, nontender. No hepatosplenomegaly, no masses, no tenderness. Bowel sounds are active. No bruits. EXTREMITIES: No pitting edema. No cyanosis, no clubbing. Full range of motion. Peripheral pulses are good. BREASTS: Normal male breasts. RECTAL: Deferred. GENITALIA: Deferred. NEUROLOGIC: Cranial nerves II-XII intact. No gross defects. Sensation normal, strength normal. Deep tendon reflexes equal bilaterally with Babinski negative. MENTAL STATUS: Alert and oriented x3. IMPRESSION: 1. Palpitations. 2. Chronic atrial fibrillation, on Eliquis. 3. Coronary artery disease, stable. 4. Renal insufficiency. 5. Elevated indeterminate level of troponin T. CK-MB is normal. PLAN: Repeat the cardiac enzymes for further evaluation and cardiac monitoring. This is an observation patient. [facility]
[2017-12-02] MEDS: ACETAMINOPHEN 500 MG TABLET PO PRN (15:25)
[2017-12-02 15:37] LABS: CKMB 3.3 ng/mL (<6.73)
[2017-12-02] MEDS ORDERED: APIXABAN 5MG TABLET PO SCH (22:00)
[2017-12-02] MEDS ORDERED: TRAMADOL HCL 50 MG TABLET PO PRN (22:00)
[2017-12-02] MEDS ORDERED: SIMVASTATIN 20 MG TABLET PO SCH (22:00)
[2017-12-02] MEDS ORDERED: LISINOPRIL 10 MG TABLET PO SCH (22:00)
[2017-12-03] MEDS: ACETAMINOPHEN 500 MG TABLET PO PRN (01:04)
--- NOTE | 2017-12-03 07:05 | Discharge Note ---
VTE H&P Assessment - Risk for VTE Risk for VTE: Yes Risk Level: Moderate Risk Assessment Date: 12/02/17 Risk Assessment Time: 13:00 VTE Orders Placed or Will Be Placed: Yes Discharge Medications - Discharge Medications Home Medications: Ambulatory Orders Aspirin [Aspirin EC] 81 mg PO DAILY 02/28/15 [Last Taken 12/02/17] Onabotulinumtoxina [Botox] 1 unit IJ ASDIR vial 08/19/16 [Last Taken 12/02/17] Apixaban [Eliquis] 5 mg PO BID 11/01/17 [Last Taken 12/02/17] Atenolol 50 mg PO DAILY 12/02/17 [Last Taken 12/02/17 09:00] Tramadol HCl 50 mg PO QHS PRN 12/02/17 [Last Taken 12/01/17 22:00] Discharge Note - Date Date of Discharge Note: 12/03/17 Disposition: Home, Self-Care Condition: (1) Good Additional Instructions: follow up with Dr. Cook or one of his associates continue his home meds Forms: Patient Portal Access Activity at Discharge: Increase Activity as Tolerated
[2017-12-03] MEDS ORDERED: ASPIRIN 325 MG TABLET PO SCH (10:00)
[2017-12-03] MEDS ORDERED: ATENOLOL 50 MG TABLET PO SCH (10:00)
--- NOTE | 2017-12-03 12:40 | Discharge Summary ---
DATE: 12/03/2017 DISCHARGE DIAGNOSES: 1. Cervical strain and shoulder discomfort from working [employer]. 2. Palpitations secondary to atrial fibrillation. 3. Chronic atrial fibrillation, on Eliquis. 4. Coronary artery disease, stable. 5. Slightly elevated troponin T in the indeterminate range, most likely secondary to renal insufficiency. 6. Renal insufficiency. ATTENDING PHYSICIAN: Robles Reddy DO REASON FOR HOSPITALIZATION: Palpitations. This 82-year-old male presented to the emergency department and he stated he noticed his heart beating in his chest, he felt palpitations, never felt that before. He had a stiff neck because he was sofía and working his [employer]. He has 2300 taps and he has been working on that for the last week. He felt his heart was running at about 120 beats per minute and was irregular. He decided to come in to be evaluated. Previously he has never felt his atrial fibrillation before. He was concerned about that. He had no chest pain but he checked his blood pressure, came into the hospital for evaluation, evaluated by Dr. Alvarez, admitted to the hospital for serial cardiac enzymes. He had a consult with Dr. Reed in the emergency department who felt it was noncardiac at this time. He normally sees Dr. Garza or Dr. Reed for his cardiac needs. He had a cardiac stress test which did show some ischemia a year or two ago but opted not to do any further testing at that time. SIGNIFICANT FINDINGS: EKG showing atrial fib, occasional PVC, no ST-T-wave changes. WBC 5000, hemoglobin 12.3, PT/INR 1.1, BUN 19, creatinine 1.3, potassium 4.1. His troponin T initially was 0.045. It went down at the next time point. He was evaluated 3 times. His CK-MB remained normal. 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 Consultation with Dr. Reed in the emergency department who felt it was noncardiac in origin. HOSPITAL COURSE: Unremarkable. No chest pain. CONDITION ON DISCHARGE: Improved and feeling better. DISCHARGE INSTRUCTIONS: Follow up with Dr. Cook or one of his associates in the next week. Continue his home medication of tramadol 50 mg q.8 h. p.r.n., atenolol 50 mg daily, Eliquis 5 mg b.i.d., Crestor 10 mg at h.s., lisinopril 10 mg b.i.d., aspirin 81 mg a day, p.r.n. Dulcolax, and Botox p.r.n. MTDD
== END 2017-12-03 08:50 | disposition home or self-care (01) ==
LOC: ER 08:49 → MEDSURG 11:29
PROVIDERS: ADMIT Emergency Medicine; ATTEND Emergency Medicine
DX: R00.2 Palpitations (principal); I48.2 Chronic atrial fibrillation; R07.89 Other chest pain; S16.1XXA Strain of muscle, fascia and tendon at neck level, initial encounter; I25.10 Atherosclerotic heart disease of native coronary artery without angina pectoris; N28.9 Disorder of kidney and ureter, unspecified; I25.9 Chronic ischemic heart disease, unspecified; I10 Essential (primary) hypertension; E78.00 Pure hypercholesterolemia, unspecified; M19.90 Unspecified osteoarthritis, unspecified site; Z79.01 Long term (current) use of anticoagulants
CPT/HCPCS: 99285 ×2; 82550; 85025; 85730; 85610; 82553; 80053; 84484; 93005 ×2; 93010 ×2; G0378 ×2; J3490 ×2; 99217; 99220

== ENCOUNTER 2018-02-11 19:01 | Emergency (ER) | payer MEDICARE, BC ==
--- NOTE | 2018-02-11 19:10 | Emergency Department Record ---
History of Present Illness - General Chief complaint: Nosebleed/epistaxis Stated complaint: NOSE BLEED Time Seen by Provider: 02/11/18 19:04 Source: Patient Mode of Arrival: Ambulatory Limitations: No limitations - History of Present Illness Initial comments: 82 yo male presents with right nostril epistaxis. The patient picked his right nostril and developed bleeding. He is on Eliquis. No other injuries. No other recent bleeding. No recent illness. He had a prior history of atrial fibrillation and DVT. No syncope, chest pain, or vomiting. MD complaint: Epistaxis -: Hour(s) (1) Location: Nose Severity: Moderate Quality: Other Consistency: Intermittent Improves with: None Worsens with: None Context-Epistaxis: Other Context- Dental: Other Context- Ear: Other Associated Symptoms: Other - Related Data Previous Rx's Medication Instructions Recorded Cephalexin [Keflex] 500 mg PO TID #12 cap 02/11/18 Allergies Allergy/AdvReac Type Severity Reaction Status Date / Time atorvastatin calcium Allergy Intermediate SWELLING Unverified 01/07/18 13:39 [From Lipitor] (GENERAL) Penicillins Allergy Intermediate PT UNSURE Unverified 01/07/18 13:39 OF REACTION Review of Systems Constitutional: Denies: Chills, Fever, Malaise, Weakness Eyes: Denies: Eye discharge, Eye pain, Vision change ENT: Reports: As per HPI, Epistaxis Respiratory: Denies: Cough, Dyspnea Cardiovascular: Denies: Chest pain, Syncope Endocrine: Denies: Fatigue Gastrointestinal: Denies: Abdominal pain, Diarrhea, Nausea, Vomiting Genitourinary: Denies: Dysuria, Frequency, Hematuria Musculoskeletal: Denies: Arthralgia, Joint swelling, Myalgia, Neck pain Skin: Denies: Bruising, Change in color, Rash Neurological: Denies: Confusion, Headache Psychiatric: Denies: Anxiety Hematological/Lymphatic: Denies: Easy bleeding, Easy bruising, Swollen glands Past Medical History - SOCIAL HISTORY Smoking Status: Never smoker Drug Use: None - RESPIRATORY Hx Respiratory Disorders: Yes Hx Pneumonia: Yes (age 1) - CARDIOVASCULAR Hx Cardio Disorders: Yes Hx Chest Pain: Yes (2 days) Hx Hypertension: Yes Hx Irregular Heartbeat: Yes (Afib after knee surgery years ago) Comment:: High cholestrol - NEURO Hx Neuro Disorders: No - GI Hx GI Disorders: No - Hx Genitourinary Disorders: No - ENDOCRINE Hx Endocrine Disorders: No Hx Diabetes: No Hx Thyroid Disease: No - MUSCULOSKELETAL Hx Musculoskeletal Disorders: Yes Hx Arthritis: Yes - PSYCH Hx Psych Problems: No - HEMATOLOGY/ONCOLOGY Hx Hematology/Oncology Disorders: No Family Medical History Hx Heart Disease: Father Physical Exam - General General Appearance: Alert, Oriented x3, Cooperative, No acute distress Limitations: No limitations - Head Head exam: Atraumatic, Normal inspection - Eye Eye exam: Normal appearance, PERRL. negative: Conjunctival injection, Scleral icterus - ENT ENT exam: Normal exam, Mucous membranes moist, Normal orophraynx, TM's normal bilaterally Ear exam: Normal external inspection Nasal Exam: Active bleeding (Right). negative: Discharge, Foreign body, Sinus tenderness Mouth exam: negative: Drooling, Muffled voice, Tongue normal, Trismus Teeth exam: Normal inspection Throat exam: Normal inspection - Neck Neck exam: Normal inspection, Full ROM. negative: Tenderness - Respiratory Respiratory exam: Normal lung sounds bilaterally. negative: Respiratory distress, Rhonchi, Stridor, Wheezes - Cardiovascular Cardiovascular Exam: Regular rate, Normal heart sounds Peripheral Pulses: 2+: Radial (R), Radial (L) - GI/Abdominal GI/Abdominal exam: Soft - Rectal Rectal exam: Deferred - exam: Deferred - Extremities Extremities exam: Normal inspection - Neurological Neurological exam: Alert, Normal gait, Oriented X3 - Psychiatric Psychiatric exam: Normal affect, Normal mood - Skin Skin exam: Dry, Intact, Normal color, Warm Course - Reevaluation(s) Reevaluation #1: Mild right nostril bleeding on initial examination TLE with cotton packed in right nostril 02/11/18 19:08 Mild oozing persisted after initial packing The area was repacked 02/11/18 19:48 02/11/18 19:48 No acute changes on the CBC or PT The CR is 1.6. Baseline is 1.3 The patient was informed of the need to follow up with PCP in the next week and stay hydrated. 02/11/18 20:17 The septum was cauterized gently A Merocel anterior packing was placed with good results We discussed home care and reasons to return to the ED 02/11/18 20:37 No bleeding at the time of DC Medical Decision Making - Lab Data Result diagrams: 02/11/18 19:15 02/11/18 19:15 Disposition Disposition: Discharge Clinical Impression: Epistaxis Disposition: Home, Self-Care Condition: (1) Good Instructions: Nosebleed (ED) Additional Instructions: Return to the ED if you have pain, fever, bleeding or concerns about the packing in the nose Return Thursday or see your doctor on Thursday for packing removal. Prescriptions: Cephalexin [Keflex] 500 mg PO TID #12 cap Forms: Patient Portal Access Time of Disposition: 20:18 Quality - Quality Measures Quality Measures: N/A - Blood Pressure Screening Does Patient Have Any of the Following: Active Dx of HTN Blood Pressure Classification: Hypertensive Reading Systolic Measurement: 145 Diastolic Measurement: 100 Screening for High Blood Pressure: Patient Exclusion, Hx of HTN [G9744]
[2018-02-11 19:20] LABS: EOS % 6.6 % (0-6); GRAN % 51.6 % (47-80); HEMATOCRIT 38.2 % (42.0-52.0); HEMOGLOBIN 12.3 gm/dl (14.0-18.0); LYMPH % 30.3 % (16-45); MEAN CELL VOLUME 92.9 fl (81-97); MEAN CORPUSCULAR HEMOGLOBIN 29.9 pg (27-33); MEAN CORPUSCULAR HGB CONC 32.2 g/dl (32-36); MEAN PLATELET VOLUME 9.4 fl (7.4-10.4); MONO % 10.5 % (0-9); PLATELET COUNT 190 K/uL (130-400); RED BLOOD COUNT 4.11 M/uL (4.40-5.70); RED CELL DISTRIBUTION WIDTH 14.3 % (11.5-14.5); WHITE BLOOD COUNT W/O DIFF 4.9 K/uL (4.2-12.2)
[2018-02-11 19:33] LABS: CREATININE 1.6 mg/dL (0.7-1.2); INR 1.1; PARTIAL THROMBOPLASTIN TIME 31.4 SECONDS (24.5-39.1); PROTHROMBIN TIME (PATIENT) 11.5 SECONDS (9.5-12.1)
== END 2018-02-11 20:55 | disposition home or self-care (01) ==
LOC: ER 19:01
DX: R04.0 Epistaxis (principal); I48.91 Unspecified atrial fibrillation; Z79.01 Long term (current) use of anticoagulants
CPT/HCPCS: 30901; 80048; 85025; 85610; 85730; 99283; 99284

== ENCOUNTER 2018-02-14 13:15 | Emergency (ER) | payer MEDICARE, BC ==
[2018-02-14] MEDS: TOPICAL LIDOCAINE W/ EPI 5 ML TOP ONE (13:55)
--- NOTE | 2018-02-14 14:15 | Emergency Department Record ---
History of Present Illness - General Chief Complaint: Wound, check Stated Complaint: DRESSING REMOVAL Time Seen by Provider: 02/14/18 13:32 Source: Patient Mode of arrival: Ambulatory Limitations: No limitations - History of Present Illness Initial Comments: pt here to have nasal packing removed placed 5 days ago. he has had no further bleeding. Complaint: Wound re-check Onset/Timin -: Days(s) Initial Visit For: Other Returns Today for: Wound recheck, Other Symptoms Since Prior Visit: No new symptoms Associated Symptoms: None - Related Data Home Medications Medication Instructions Recorded Confirmed Last Taken Acetaminophen [Tylenol 325Mg] 650 mg PO TID 02/14/18 02/14/18 02/14/18 Previous Rx's Medication Instructions Recorded Cephalexin [Keflex] 500 mg PO TID #12 cap 02/11/18 Allergies Allergy/AdvReac Type Severity Reaction Status Date / Time atorvastatin calcium Allergy Intermediate SWELLING Verified 02/14/18 13:27 [From Lipitor] (GENERAL) Penicillins Allergy Intermediate PT UNSURE Verified 02/14/18 13:27 OF REACTION Travel Screening - Travel/Exposure Within Last 30 Days Have you traveled within the last 30 days?: No - Travel/Exposure Within Last Year Have you traveled outside the [place] in the last year?: No - Additonal Travel Details Have you been exposed to anyone with a communicable illness?: No - Travel Symptoms Symptom Screening: None Review of Systems Reviewed: No additional complaints except as noted below Constitutional: Reports: As per HPI. Denies: Chills, Fever, Malaise, Night sweats, Weakness, Weight change Eyes: Reports: As per HPI. Denies: Eye discharge, Eye pain, Photophobia, Vision change ENT: Reports: As per HPI. Denies: Congestion, Dental pain, Ear pain, Epistaxis , Hearing loss, Throat pain Respiratory: Reports: As per HPI. Denies: Cough, Dyspnea, Hemoptysis, Stridor, Wheezes Cardiovascular: Reports: As per HPI. Denies: Arrhythmia, Chest pain, Dyspnea on exertion, Edema, Murmurs, Orthopnea, Palpitations, Paroxysmal nocturnal dyspnea, Rheumatic Fever, Syncope Endocrine: Reports: As per HPI. Denies: Fatigue, Heat or cold intolerance, Polydipsia, Polyuria Gastrointestinal: Reports: As per HPI. Denies: Abdominal pain, Constipation, Diarrhea, Hematemesis, Hematochezia, Melena, Nausea, Vomiting Genitourinary: Reports: As per HPI. Denies: Dysuria, Frequency, Hematuria, Incontinence, Retention, Testicular pain, Testicular mass, Urgency Musculoskeletal: Reports: As per HPI. Denies: Arthralgia, Back pain, Gout, Joint swelling, Myalgia, Neck pain Skin: Reports: As per HPI. Denies: Bruising, Change in color, Change in hair/ nails, Lesions, Pruritus, Rash Neurological: Reports: As per HPI. Denies: Abnormal gait, Confusion, Headache, Numbness, Paresthesias, Seizure, Tingling, Tremors, Vertigo, Weakness Psychiatric: Reports: As per HPI. Denies: Anxiety, Auditory hallucinations, Depression, Homicidal thoughts, Suicidal thoughts, Visual hallucinations Hematological/Lymphatic: Reports: As per HPI. Denies: Anemia, Blood Clots, Easy bleeding, Easy bruising, Swollen glands Past Medical History - SOCIAL HISTORY Smoking Status: Never smoker Alcohol Use: None Drug Use: None - RESPIRATORY Hx Respiratory Disorders: Yes Hx Pneumonia: Yes (age 1) - CARDIOVASCULAR Hx Cardio Disorders: Yes Hx Chest Pain: Yes (2 days) Hx Hypertension: Yes Hx Irregular Heartbeat: Yes (Afib after knee surgery years ago) Comment:: High cholestrol - NEURO Hx Neuro Disorders: No - GI Hx GI Disorders: No - Hx Genitourinary Disorders: No - ENDOCRINE Hx Endocrine Disorders: No Hx Diabetes: No Hx Thyroid Disease: No - MUSCULOSKELETAL Hx Musculoskeletal Disorders: Yes Hx Arthritis: Yes - PSYCH Hx Psych Problems: No - HEMATOLOGY/ONCOLOGY Hx Hematology/Oncology Disorders: No Family Medical History Any Significant Family History?: No Hx Heart Disease: Father Physical Exam - General General Appearance: Alert, Oriented x3, Cooperative, Mild distress - Head Head exam: Normal inspection - Eye Eye exam: Normal appearance, PERRL, EOMI Pupils: Normal accommodation - ENT ENT exam: Normal exam, Mucous membranes moist, Normal external ear exam, Normal orophraynx, TM's normal bilaterally Ear exam: Normal external inspection. negative: External canal tenderness Nasal Exam: Active bleeding, Discharge, Other. negative: Sinus tenderness Mouth exam: Normal external inspection, Tongue normal Teeth exam: Normal inspection. negative: Dental caries Throat exam: Normal inspection. negative: Tonsillar erythema, Tonsillar exudate - Neck Neck exam: Normal inspection, Full ROM. negative: Tenderness - Respiratory Respiratory exam: Normal lung sounds bilaterally. negative: Respiratory distress - Cardiovascular Cardiovascular Exam: Regular rate, Normal rhythm, Normal heart sounds - GI/Abdominal GI/Abdominal exam: Soft, Normal bowel sounds. negative: Tenderness - Rectal Rectal exam: Deferred - exam: Deferred - Extremities Extremities exam: Normal inspection, Full ROM, Normal capillary refill. negative: Tenderness - Back Back exam: Reports: Normal inspection, Full ROM. Denies: Muscle spasm, Rash noted, Tenderness - Neurological Neurological exam: Alert, CN II-XII intact, Normal gait, Oriented X3 - Psychiatric Psychiatric exam: Normal affect, Normal mood - Skin Skin exam: Dry, Intact, Normal color, Warm Course Vital Signs 02/14/18 13:18 Temperature 97 F L Pulse Rate 72 Respiratory 16 Rate Blood Pressure 146/94 Pulse Ox 96 - Reevaluation(s) Reevaluation #1: 02/14/18 14:17 when packing was removed there was slight oozing in kieselbachs plexus so tle was rapplied along with pressure. the area was again cauterized w silver nitrate w good results Disposition Disposition: Discharge Clinical Impression: Anterior epistaxis Disposition: Home, Self-Care Condition: (1) Good Instructions: Nosebleed (ED) Additional Instructions: follow up with family doctor and with ENT doctor. return sooner if worse. no blowing, picking or sneezing. Forms: Patient Portal Access Quality - Quality Measures Quality Measures: N/A - Blood Pressure Screening Does Patient Have Any of the Following: No Blood Pressure Classification: Hypertensive Reading Systolic Measurement: 146 Diastolic Measurement: 94 Screening for High Blood Pressure: < First Hypertensive BP, F/U Documented > [ G8950] First Hypertensive Follow-up Interventions: Follow-up with rescreen GT 1 day and LT 4 weeks.
== END 2018-02-14 14:50 | disposition home or self-care (01) ==
LOC: ER 13:15
DX: R03.0 Elevated blood-pressure reading, without diagnosis of hypertension (principal); I10 Essential (primary) hypertension
CPT/HCPCS: 30901; 99282

== ENCOUNTER 2018-02-18 21:25 | Emergency (ER) | payer MEDICARE, BC ==
[2018-02-18] MEDS ORDERED: TRANEXAMIC ACID 1,000 MG/10 ML ML TOP ONE (21:31)
--- NOTE | 2018-02-18 21:49 | Emergency Department Record ---
History of Present Illness - General Chief complaint: Nosebleed/epistaxis Stated complaint: NOSE BLEED Time Seen by Provider: 02/18/18 21:27 Source: Patient Mode of Arrival: Ambulatory Limitations: No limitations - History of Present Illness Initial comments: The patient is here due to a nose bleed on the R side for an hour. He had the same thing a week ago and had a pack placed with resolution of the bleed. The patient is on Eliquis for Afib. complaint: Epistaxis Onset/Timin -: Hour(s) Location: Nose Context-Epistaxis: Aspirin use, Other - Related Data Previous Rx's Medication Instructions Recorded Cephalexin [Keflex] 500 mg PO TID #12 cap 02/18/18 Allergies Allergy/AdvReac Type Severity Reaction Status Date / Time atorvastatin calcium Allergy Intermediate SWELLING Verified 02/18/18 21:32 [From Lipitor] (GENERAL) Penicillins Allergy Intermediate PT UNSURE Verified 02/18/18 21:32 OF REACTION Travel Screening - Travel/Exposure Within Last 30 Days Have you traveled within the last 30 days?: No - Travel Symptoms Symptom Screening: None Review of Systems Constitutional: Denies: Chills, Fever Past Medical History - SOCIAL HISTORY Smoking Status: Never smoker - RESPIRATORY Hx Respiratory Disorders: Yes Hx Pneumonia: Yes (age 1) - CARDIOVASCULAR Hx Cardio Disorders: Yes Hx Chest Pain: Yes (2 days) Hx Hypertension: Yes Hx Irregular Heartbeat: Yes (Afib after knee surgery years ago) Comment:: High cholestrol - NEURO Hx Neuro Disorders: No - GI Hx GI Disorders: No - Hx Genitourinary Disorders: No - ENDOCRINE Hx Endocrine Disorders: No Hx Diabetes: No Hx Thyroid Disease: No - MUSCULOSKELETAL Hx Musculoskeletal Disorders: Yes Hx Arthritis: Yes - PSYCH Hx Psych Problems: No - HEMATOLOGY/ONCOLOGY Hx Hematology/Oncology Disorders: No Family Medical History Any Significant Family History?: Yes Hx Heart Disease: Father Physical Exam - General General Appearance: Alert, Oriented x3, Cooperative, No acute distress - Head Head exam: Atraumatic, Normocephalic, Normal inspection - Eye Eye exam: Normal appearance, PERRL - ENT Nasal Exam: Active bleeding - Neck Neck exam: Normal inspection, Full ROM. negative: Tenderness - Respiratory Respiratory exam: Normal lung sounds bilaterally. negative: Respiratory distress Course Vital Signs 02/18/18 21:36 Temperature 98.5 F Pulse Rate [ 78 Pulse Ox Probe] Respiratory 20 Rate Blood Pressure 131/83 [Left Arm] Pulse Ox 95 - Reevaluation(s) Reevaluation #1: The R nares was cleared of clots by blowing. A merocel sponge soaked in TXA was placed with resolution of the nosebleed. 02/18/18 21:48 Reevaluation #2: The patient has had no further bleeding from the R nares. I did discuss the plan with Family and the need to have the pack removed on Thursday. He is to see his PCP about an ENT referral and to return t the ER for any worsening symptoms. 02/18/18 22:23 Disposition Disposition: Discharge Clinical Impression: Anterior epistaxis Disposition: Home, Self-Care Condition: (2) Stable Instructions: Nosebleed (ED) Additional Instructions: Take the Keflex as directed and see your family doctor for recheck for an ENT referral. Keep the R nasal pack moist with [place] nasal [place]. Have the pack removed by Thursday. Return to the ER for any worsening symptoms. Prescriptions: Cephalexin [Keflex] 500 mg PO TID #12 cap Forms: Patient Portal Access Time of Disposition: 22:27 Quality - Quality Measures Quality Measures: N/A - Blood Pressure Screening View Details: Yes Does Patient Have Any of the Following: No Blood Pressure Classification: Pre-Hypertensive BP Reading Systolic Measurement: 124 Diastolic Measurement: 84 Screening for High Blood Pressure: < Pre-Hypertensive BP, F/U Documented > [ G8950] Pre-Hypertensive Follow-up Interventions: Referral to alternative/primary care provider.
== END 2018-02-18 22:40 | disposition home or self-care (01) ==
LOC: ER 21:25
DX: R04.0 Epistaxis (principal); I10 Essential (primary) hypertension; I48.91 Unspecified atrial fibrillation
CPT/HCPCS: 30901 ×2; 99283 ×2; J3490

== ENCOUNTER 2018-02-22 07:14 | Emergency (ER) | payer MEDICARE, BC ==
--- NOTE | 2018-02-22 07:22 | Emergency Department Record ---
History of Present Illness - General Stated Complaint: REMOVE PACKING FROM NOSE Time Seen by Provider: 02/22/18 07:16 Source: Patient Mode of arrival: Ambulatory Limitations: No limitations - History of Present Illness Initial Comments: 82 yo male presents for a recheck of a nasal packing. He is on Eliquis. He was seen 02/11 originally but had a recurrence. This is the second packing. He has had some dripping at times with sneezing. No sustained bleeding. He states he sneezes a lot and that is when the bleeding occurs. MD Complaint: Wound re-check -: Days(s) Initial Visit For: Other Returns Today for: Other Symptoms Since Prior Visit: No new symptoms Associated Symptoms: Other (Epistaxis) Treatments Prior to Arrival: Other (Nasal packing) - Related Data Previous Rx's Medication Instructions Recorded Cephalexin [Keflex] 500 mg PO TID #12 cap 02/22/18 Allergies Allergy/AdvReac Type Severity Reaction Status Date / Time atorvastatin calcium Allergy Intermediate SWELLING Verified 02/22/18 07:24 [From Lipitor] (GENERAL) Penicillins Allergy Intermediate PT UNSURE Verified 02/22/18 07:24 OF REACTION Review of Systems Constitutional: Denies: Chills, Fever, Malaise, Weakness Eyes: Denies: Eye discharge, Eye pain ENT: Reports: Epistaxis Respiratory: Denies: Cough Cardiovascular: Denies: Chest pain Endocrine: Denies: Fatigue Gastrointestinal: Denies: Abdominal pain, Diarrhea, Nausea, Vomiting Genitourinary: Denies: Dysuria, Frequency, Hematuria Musculoskeletal: Denies: Arthralgia, Back pain, Myalgia Skin: Denies: Bruising, Rash Neurological: Denies: Headache, Numbness, Weakness Psychiatric: Denies: Anxiety Hematological/Lymphatic: Reports: Easy bleeding, Easy bruising Past Medical History - SOCIAL HISTORY Smoking Status: Never smoker - RESPIRATORY Hx Respiratory Disorders: Yes Hx Pneumonia: Yes (age 1) - CARDIOVASCULAR Hx Cardio Disorders: Yes Hx Chest Pain: Yes (2 days) Hx Hypertension: Yes Hx Irregular Heartbeat: Yes (Afib after knee surgery years ago) Comment:: High cholestrol - NEURO Hx Neuro Disorders: No - GI Hx GI Disorders: No - Hx Genitourinary Disorders: No - ENDOCRINE Hx Endocrine Disorders: No Hx Diabetes: No Hx Thyroid Disease: No - MUSCULOSKELETAL Hx Musculoskeletal Disorders: Yes Hx Arthritis: Yes - PSYCH Hx Psych Problems: No - HEMATOLOGY/ONCOLOGY Hx Hematology/Oncology Disorders: No Family Medical History Hx Heart Disease: Father Physical Exam - General General Appearance: Alert, Oriented x3, Cooperative, No acute distress Limitations: No limitations - Head Head exam: Atraumatic, Normal inspection - Eye Eye exam: Normal appearance. negative: Conjunctival injection, Scleral icterus - ENT ENT exam: Normal exam Ear exam: Normal external inspection Nasal Exam: Dried blood, Other (One the septum there is a small 2mm scabbed raised area, with hyperemic vessels. This looks like it had bleed. ). negative: Normal inspection, Active bleeding, Discharge, Sinus tenderness Mouth exam: Normal external inspection - Neck Neck exam: Normal inspection - Respiratory Respiratory exam: Normal lung sounds bilaterally. negative: Respiratory distress - Cardiovascular Cardiovascular Exam: Regular rate, Normal rhythm, Normal heart sounds - Extremities Extremities exam: Normal inspection - Neurological Neurological exam: Alert, Oriented X3 - Psychiatric Psychiatric exam: Normal affect, Normal mood - Skin Skin exam: Dry, Intact, Normal color, Warm Course - Reevaluation(s) Reevaluation #1: The packing was removed No bleeding The small scabbed 2mm septal polyp like area was hyperemic with appearance of recent bleeding. The area was gently cauterized and TXA soaked cotton placed in the nose. 02/22/18 07:34 The cotton soaked TXA did absorb blood indicating some bleeding. 02/22/18 08:00 The packing was changed. The septum still has very mild oozing. 02/22/18 08:05 02/22/18 08:45 The inferior portion of the septum was cauterized. No rebleeding occurred. Given his recurrent bleeding a Nasal tampon was placed again. I SW the family medicine clinical statistics manager regarding the pending consult with ENT. A referral was made Thursday. He should get a call today to set up a Thursday appointment [facility]. 02/22/18 09:06 No bleeding at this time even after a prolonged sneezing episode Disposition Disposition: Discharge Clinical Impression: Epistaxis Disposition: Home, Self-Care Condition: (1) Good Instructions: Nosebleed (ED) Additional Instructions: Return to the ED if the bleeding returns Follow up on Thursday for your referral to ENT Call this afternoon to confirm an appointment time Prescriptions: Cephalexin [Keflex] 500 mg PO TID #12 cap Referrals: AMBER ZAVALA [DOCTOR OF OSTEOPATH] - Forms: Patient Portal Access Time of Disposition: 07:35 Quality - Quality Measures Quality Measures: N/A - Blood Pressure Screening Does Patient Have Any of the Following: Active Dx of HTN Blood Pressure Classification: Hypertensive Reading Systolic Measurement: 164 Diastolic Measurement: 115 Screening for High Blood Pressure: Patient Exclusion, Hx of HTN [G9744]
[2018-02-22] MEDS: TRANEXAMIC ACID 1,000 MG/10 ML ML TOP ONE (07:32)
[2018-02-22] MEDS ORDERED: TOPICAL LIDOCAINE W/ EPI 5 ML TOP ONE (07:59)
== END 2018-02-22 09:14 | disposition home or self-care (01) ==
LOC: ER 07:14
DX: R04.0 Epistaxis (principal); I48.91 Unspecified atrial fibrillation; I10 Essential (primary) hypertension; Z79.01 Long term (current) use of anticoagulants
CPT/HCPCS: 30903; 99283

== ENCOUNTER 2018-06-25 22:27 | Emergency (ER) | payer MEDICARE, BC ==
--- NOTE | 2018-06-25 22:43 | Emergency Department Record ---
History of Present Illness - General Chief complaint: Male Urogenital Problem Stated complaint: NEED A CATH PUT IN Time Seen by Provider: 06/25/18 22:31 Source: Patient Mode of Arrival: Ambulatory Limitations: No limitations - History of Present Illness Initial comments: 82 yo male presents to ED for evaluation of urinary retention symptoms that began 3 hours ago. Patient reports recent prostate procedure with Dr. Evans 2 weeks ago, reports that he had been doing well until this evening. Patient reports urinary retention symptoms and "blood" from the urethra. Patient denies fevers, chills, nausea, or vomiting symptoms. MD Complaint: Other (Urinary retention) Onset/Timin -: Hour(s) Location: Abdomen Radiation: None Severity: Moderate Quality: Aching Consistency: Constant Improves with: None Worsens with: None Recent surgery Reports: Denies other symptoms - Related Data Previous Rx's Medication Instructions Recorded Ciprofloxacin HCl [Cipro] 500 mg PO Q12HR #13 tablet 06/25/18 Allergies Allergy/AdvReac Type Severity Reaction Status Date / Time atorvastatin calcium Allergy Intermediate SWELLING Unverified 04/06/18 13:28 [From Lipitor] (GENERAL) Penicillins Allergy Intermediate PT UNSURE Unverified 04/06/18 13:28 OF REACTION Review of Systems Constitutional: Denies: Chills, Fever, Malaise, Night sweats Eyes: Denies: Eye discharge, Eye pain ENT: Denies: Congestion, Ear pain, Epistaxis Respiratory: Denies: Cough, Dyspnea Cardiovascular: Denies: Chest pain, Dyspnea on exertion Endocrine: Denies: Fatigue, Heat or cold intolerance Gastrointestinal: Reports: Abdominal pain. Denies: Nausea, Vomiting Genitourinary: Reports: Retention. Denies: Hematuria, Incontinence Musculoskeletal: Denies: Arthralgia, Back pain, Gout, Joint swelling Skin: Denies: Bruising, Change in color Neurological: Denies: Abnormal gait, Confusion, Headache, Seizure Psychiatric: Denies: Anxiety Hematological/Lymphatic: Denies: Anemia, Blood Clots Past Medical History - SOCIAL HISTORY Smoking Status: Never smoker - RESPIRATORY Hx Respiratory Disorders: Yes Hx Pneumonia: Yes (age 1) - CARDIOVASCULAR Hx Cardio Disorders: Yes Hx Chest Pain: Yes (2 days) Hx Hypertension: Yes Hx Irregular Heartbeat: Yes (Afib after knee surgery years ago) Comment:: High cholestrol - NEURO Hx Neuro Disorders: No - GI Hx GI Disorders: No - Hx Genitourinary Disorders: No - ENDOCRINE Hx Endocrine Disorders: No Hx Diabetes: No Hx Thyroid Disease: No - MUSCULOSKELETAL Hx Musculoskeletal Disorders: Yes Hx Arthritis: Yes - PSYCH Hx Psych Problems: No - HEMATOLOGY/ONCOLOGY Hx Hematology/Oncology Disorders: No Family Medical History Hx Heart Disease: Father Physical Exam - General General Appearance: Alert, Oriented x3, Cooperative, Mild distress Limitations: No limitations - Head Head exam: Atraumatic, Normocephalic, Normal inspection Head exam detail: negative: Abrasion, Contusion, Clark's sign, General tenderness, Hematoma, Laceration - Eye Eye exam: Normal appearance. negative: Conjunctival injection, Periorbital swelling, Periorbital tenderness, Scleral icterus - ENT Ear exam: negative: Auricular hematoma, Auricular trauma Nasal Exam: negative: Active bleeding, Discharge, Dried blood, Foreign body Mouth exam: negative: Drooling, Laceration, Muffled voice, Tongue elevation - Neck Neck exam: Normal inspection. negative: Meningismus, Tenderness - Respiratory Respiratory exam: Normal lung sounds bilaterally. negative: Rales, Respiratory distress, Rhonchi, Stridor - Cardiovascular Cardiovascular Exam: Regular rate, Normal rhythm, Normal heart sounds - GI/Abdominal GI/Abdominal exam: Soft, Tenderness (Mild suprapubic TTP, no rebound, no guarding present.). negative: Rebound, Rigid - Rectal Rectal exam: Deferred - exam: Deferred - Extremities Extremities exam: Pedal edema. negative: Tenderness - Back Back exam: Denies: CVA tenderness (R), CVA tenderness (L) - Neurological Neurological exam: Alert, Normal gait, Oriented X3 - Psychiatric Psychiatric exam: Normal affect, Normal mood - Skin Skin exam: Normal color. negative: Abrasion Type of lesion: negative: abrasion Course - Reevaluation(s) Reevaluation #1: 06/25/18 23:49 Bedside bladder scan demonstrates approximately 320 mL retained in the bladder. UA reviewed: RBCs: TNTC WBCs: 3-5 Epis: None Bact: few Patient was updated on all results, will initiate treatment with with Cipro as directed with instructions to follow-up with Dr. Evans Thursday as directed. Patient verbalizes understanding of all instructions and appears stable for discharge at this time. Disposition Disposition: Discharge Clinical Impression: Urinary retention UTI (urinary tract infection) Qualifiers: Urinary tract infection type: acute cystitis Hematuria presence: without hematuria Qualified Code(s): N30.00 - Acute cystitis without hematuria Disposition: Home, Self-Care Condition: (2) Stable Instructions: Urinary Retention in Men (ED) Additional Instructions: Return to ED if your symptoms worsen or if you have any concerns. Cipro as directed. Follow-up with Dr. Evans Thursday as directed, call for appointment. Prescriptions: Ciprofloxacin HCl [Cipro] 500 mg PO Q12HR #13 tablet Forms: Patient Portal Access Time of Disposition: 23:53 Quality - Quality Measures Quality Measures: N/A - Blood Pressure Screening Does Patient Have Any of the Following: No Blood Pressure Classification: Pre-Hypertensive BP Reading Systolic Measurement: 118 Diastolic Measurement: 82 Screening for High Blood Pressure: < Pre-Hypertensive BP, F/U Documented > [ G8950] Pre-Hypertensive Follow-up Interventions: Referral to alternative/primary care provider.
[2018-06-25] MEDS ORDERED: LIDOCAINE UROJECT 10 ML APPL MM ONE (22:56)
[2018-06-25 23:32] LABS: URINE APPEARANCE CLOUDY; URINE BILIRUBIN NEGATIVE (NEGATIVE); URINE BLOOD LARGE (NEGATIVE); URINE COLOR RED; URINE GLUCOSE (UA) NEGATIVE (NEGATIVE); URINE KETONE TRACE (NEGATIVE); URINE LEUKOCYTE ESTERASE TRACE (NEGATIVE); URINE NITRITE POSITIVE (NEGATIVE)
[2018-06-25 23:43] LABS: URINE BACTERIA FEW; URINE EPITHELIAL CELLS NONE SEEN (FEW)
[2018-06-25] MEDS ORDERED: CIPROFLOXACIN HCL 500 MG TABLET PO ONE (23:52)
== END 2018-06-26 00:22 | disposition home or self-care (01) ==
LOC: ER 22:27
DX: N30.01 Acute cystitis with hematuria (principal); R33.9 Retention of urine, unspecified; I10 Essential (primary) hypertension; Z79.01 Long term (current) use of anticoagulants
CPT/HCPCS: 81001; 99283

== ENCOUNTER 2018-06-27 20:12 | Emergency (ER) | payer MEDICARE, BC ==
--- NOTE | 2018-06-27 20:50 | Emergency Department Record ---
History of Present Illness - General Chief complaint: Male Urogenital Problem Stated complaint: CATHETER LEAKING Time Seen by Provider: 06/27/18 20:25 Source: Patient Mode of Arrival: Ambulatory Limitations: No limitations - History of Present Illness Initial comments: The patient is here due to his catheter leaking mildly for a couple of hours. He had a Mckay Catheter placed 2 days ago for urine retention and it has been working well. The patient is on ELiquis for Afib and tonight it was leaking mildly around the mckay. Presently it is improved. He has no pain, fever, or nausea. MD Complaint: Other Onset/Timin -: Hour(s) - Related Data Previous Rx's Medication Instructions Recorded Ciprofloxacin HCl [Cipro] 500 mg PO Q12HR #13 tablet 06/25/18 Allergies Allergy/AdvReac Type Severity Reaction Status Date / Time atorvastatin calcium Allergy Intermediate SWELLING Unverified 04/06/18 13:28 [From Lipitor] (GENERAL) Penicillins Allergy Intermediate PT UNSURE Unverified 04/06/18 13:28 OF REACTION Travel Screening - Travel/Exposure Within Last 30 Days Have you traveled within the last 30 days?: No - Travel Symptoms Symptom Screening: None Review of Systems Constitutional: Denies: Chills, Fever Eyes: Denies: Eye discharge ENT: Denies: Congestion Respiratory: Denies: Cough, Dyspnea Past Medical History - SOCIAL HISTORY Smoking Status: Never smoker Alcohol Use: None Drug Use: None - RESPIRATORY Hx Respiratory Disorders: Yes Hx Pneumonia: Yes (age 1) - CARDIOVASCULAR Hx Cardio Disorders: Yes Hx Chest Pain: Yes (2 days) Hx Hypertension: Yes Hx Irregular Heartbeat: Yes (Afib after knee surgery years ago) Comment:: High cholestrol - NEURO Hx Neuro Disorders: No - GI Hx GI Disorders: No - Hx Genitourinary Disorders: No - ENDOCRINE Hx Endocrine Disorders: No Hx Diabetes: No Hx Thyroid Disease: No - MUSCULOSKELETAL Hx Musculoskeletal Disorders: Yes Hx Arthritis: Yes - PSYCH Hx Psych Problems: No - HEMATOLOGY/ONCOLOGY Hx Hematology/Oncology Disorders: No Family Medical History Any Significant Family History?: Yes Hx Heart Disease: Father Physical Exam - General General Appearance: Alert, Oriented x3, Cooperative, No acute distress - Head Head exam: Atraumatic, Normocephalic, Normal inspection - Eye Eye exam: Normal appearance, PERRL, EOMI - Neck Neck exam: Normal inspection, Full ROM. negative: Tenderness - Respiratory Respiratory exam: Normal lung sounds bilaterally. negative: Respiratory distress - Cardiovascular Cardiovascular Exam: Irregular rhythm - GI/Abdominal GI/Abdominal exam: Soft, Normal bowel sounds. negative: Distended, Guarding, Rigid, Tenderness - exam: negative: Testicular tenderness, Urethral discharge Course Vital Signs 06/27/18 20:24 Temperature 97.8 F Pulse Rate [ 79 Pulse Ox Probe] Respiratory 20 Rate Blood Pressure 159/115 [Left Arm] Pulse Ox 96 - Reevaluation(s) Reevaluation #1: The patient is doing very well at this time. His catheter is draining very well and he has no pain or discomfort. His BP is much improved. I did explain to him that he should hold his next dose of Eliquis and see his Urologist ALANA. 06/27/18 21:09 Disposition Disposition: Discharge Clinical Impression: Urinary retention Disposition: Home, Self-Care Condition: (2) Stable Instructions: Urinary Retention in Men (ED) Additional Instructions: Please continue your regular medicines and hold your next dose of Eliquis. Please see your Urologist for recheck tomorrow. Return to the ER for any worsening symptoms. Forms: Patient Portal Access Time of Disposition: 21:12 Quality - Quality Measures Quality Measures: N/A - Blood Pressure Screening View Details: Yes Does Patient Have Any of the Following: No Blood Pressure Classification: Pre-Hypertensive BP Reading Systolic Measurement: 135 Diastolic Measurement: 89 Screening for High Blood Pressure: < Pre-Hypertensive BP, F/U Documented > [ G8950] Pre-Hypertensive Follow-up Interventions: Referral to alternative/primary care provider.
== END 2018-06-27 21:25 | disposition home or self-care (01) ==
LOC: ER 20:12
DX: R33.9 Retention of urine, unspecified (principal); R31.0 Gross hematuria; I48.91 Unspecified atrial fibrillation; Z79.01 Long term (current) use of anticoagulants
CPT/HCPCS: 99282

== ENCOUNTER 2018-11-13 18:23 | Emergency (ER) | payer MEDICARE, BC ==
--- NOTE | 2018-11-13 18:48 | Emergency Department Record ---
History of Present Illness - General Chief Complaint: Hypertension Stated Complaint: HIGH BP Time Seen by Provider: 11/13/18 18:24 Source: Patient Mode of Arrival: Ambulatory Limitations: No limitations - History of Present Illness Initial Comments: 83 yo male presents to ED for evaluation of elevated blood pressure, denies chest discomfort, numbness, tingling, or focal weakness. Patient reports that his blood pressure reading here in the ED is much improved than his reading at home. Patient's reading at home was 120's over 120's. Complaint: Other Onset/Timin -: Minutes(s) Description: Other History of Same: Yes History of Trauma: No Improves With: Nothing Worsens With: Nothing - Sandro Coma Scale Eye Response: (4) Open spontaneously Motor Response: (6) Obeys commands Verbal Response: (5) Oriented [place] Total: 15 - Related Data Allergies Allergy/AdvReac Type Severity Reaction Status Date / Time atorvastatin calcium Allergy Intermediate SWELLING Verified 11/13/18 18:45 [From Lipitor] (GENERAL) Penicillins Allergy Intermediate PT UNSURE Verified 11/13/18 18:45 OF REACTION Travel Screening - Travel/Exposure Within Last 30 Days Have you traveled within the last 30 days?: No - Travel/Exposure Within Last Year Have you traveled outside the [place] in the last year?: No - Additonal Travel Details Have you been exposed to anyone with a communicable illness?: No Review of Systems Constitutional: Denies: Chills, Fever, Malaise, Night sweats Eyes: Denies: Eye discharge, Eye pain ENT: Denies: Congestion, Ear pain, Epistaxis Respiratory: Denies: Cough, Dyspnea Cardiovascular: Denies: Chest pain, Dyspnea on exertion Endocrine: Denies: Fatigue, Heat or cold intolerance Gastrointestinal: Denies: Abdominal pain, Nausea, Vomiting Musculoskeletal: Denies: Arthralgia, Back pain Skin: Denies: Bruising, Change in color Neurological: Denies: Abnormal gait, Confusion, Seizure Psychiatric: Denies: Anxiety Hematological/Lymphatic: Denies: Anemia, Blood Clots Past Medical History - SOCIAL HISTORY Smoking Status: Never smoker Alcohol Use: None Drug Use: None - RESPIRATORY Hx Respiratory Disorders: Yes Hx Pneumonia: Yes (age 1) - CARDIOVASCULAR Hx Cardio Disorders: Yes Hx Chest Pain: Yes (2 days) Hx Hypertension: Yes Hx Irregular Heartbeat: Yes (Afib after knee surgery years ago) Comment:: High cholestrol - NEURO Hx Neuro Disorders: No - GI Hx GI Disorders: No - Hx Genitourinary Disorders: No - ENDOCRINE Hx Endocrine Disorders: No Hx Diabetes: No Hx Thyroid Disease: No - MUSCULOSKELETAL Hx Musculoskeletal Disorders: Yes Hx Arthritis: Yes - PSYCH Hx Psych Problems: No - HEMATOLOGY/ONCOLOGY Hx Hematology/Oncology Disorders: No Family Medical History Any Significant Family History?: No Hx Heart Disease: Father Physical Exam - General General Appearance: Alert, Oriented x3, Cooperative, No acute distress Limitations: No limitations - Head Head exam: Atraumatic, Normocephalic, Normal inspection Head exam detail: negative: Abrasion, Contusion, Clark's sign, General tenderness, Hematoma, Laceration - Eye Eye exam: Normal appearance. negative: Conjunctival injection, Periorbital swelling, Periorbital tenderness, Scleral icterus - ENT Ear exam: negative: Auricular hematoma, Auricular trauma Nasal Exam: negative: Active bleeding, Discharge, Dried blood, Foreign body Mouth exam: negative: Drooling, Laceration, Muffled voice, Tongue elevation - Neck Neck exam: Normal inspection. negative: Meningismus, Tenderness - Respiratory Respiratory exam: Normal lung sounds bilaterally. negative: Rales, Respiratory distress, Rhonchi, Stridor - Cardiovascular Cardiovascular Exam: Irregular rhythm - GI/Abdominal GI/Abdominal exam: Soft. negative: Rebound, Rigid, Tenderness - Rectal Rectal exam: Deferred - exam: Deferred - Extremities Extremities exam: Normal inspection. negative: Pedal edema, Tenderness - Back Back exam: Denies: CVA tenderness (R), CVA tenderness (L) - Neurological Neurological exam: Alert, Normal gait, Oriented X3 - Psychiatric Psychiatric exam: Normal affect, Normal mood - Skin Skin exam: Normal color. negative: Abrasion Type of lesion: negative: abrasion Course Vital Signs 11/13/18 18:26 Pulse Rate 74 Respiratory 18 Rate Blood Pressure 147/115 Pulse Ox 96 - Reevaluation(s) Reevaluation #1: 11/13/18 18:52 Patient was seen and examined, denies symptoms at this time, reports that he is feeling much better. Patient's blood pressure is 147/115. Patient was instructed to follow-up with his PCP and continue his home medications as prescribed. Disposition Disposition: Discharge Clinical Impression: Hypertension Qualifiers: Hypertension type: unspecified Qualified Code(s): I10 - Essential (primary) hypertension Disposition: Home, Self-Care Condition: (2) Stable Instructions: Hypertension (ED) Additional Instructions: Return to ED if your symptoms worsen or if you have any concerns. Continue your home medications as prescribed. Follow-up with your family doctor in 3-5 days as directed. Forms: Patient Portal Access Time of Disposition: 18:47 Quality - Quality Measures Quality Measures: N/A - Blood Pressure Screening Does Patient Have Any of the Following: Active Dx of HTN Blood Pressure Classification: Hypertensive Reading Systolic Measurement: 147 Diastolic Measurement: 115 Screening for High Blood Pressure: Patient Exclusion, Hx of HTN [G9744]
== END 2018-11-13 18:59 | disposition home or self-care (01) ==
LOC: ER 18:23
DX: I10 Essential (primary) hypertension (principal); I48.91 Unspecified atrial fibrillation; Z79.01 Long term (current) use of anticoagulants
CPT/HCPCS: 99282

== ENCOUNTER 2019-01-02 02:22 | Emergency (ER) | payer MEDICARE, BC ==
--- NOTE | 2019-01-02 02:35 | Emergency Department Record ---
History of Present Illness - General Chief Complaint: Chest Pain Stated Complaint: AFIB Time Seen by Provider: 01/02/19 02:30 Source: Patient Mode of Arrival: EMS Limitations: No limitations - History of Present Illness Initial Comments: The patient is here due to a 5-6 hour hx of L upper chest aching pain. The pain is intermittent and mostly comes on with movement. He denies any SOB, KAN, sweating or nausea with the pain. The patient does have a hx of Afib but has had no CAD in the past. Presently the pain is gone. MD Complaint: Chest pain Onset/Timin -: Hour(s) Onset: During rest Pain Location: Substernal Pain Radiation: None Severity: Mild Quality: Aching Consistency: Intermittent Improves With: Rest Worsens With: Nothing Context: Other Treatments Prior to Arrival: None - Related Data Allergies Allergy/AdvReac Type Severity Reaction Status Date / Time atorvastatin calcium Allergy Intermediate SWELLING Unverified 11/26/18 11:53 [From Lipitor] (GENERAL) Penicillins Allergy Intermediate PT UNSURE Unverified 11/26/18 11:53 OF REACTION Travel Screening - Travel/Exposure Within Last 30 Days Have you traveled within the last 30 days?: No - Travel Symptoms Symptom Screening: None Review of Systems Constitutional: Denies: Chills, Fever Eyes: Denies: Eye discharge ENT: Denies: Congestion Respiratory: Denies: Cough, Dyspnea Cardiovascular: Reports: Chest pain. Denies: Arrhythmia Endocrine: Denies: Fatigue Gastrointestinal: Denies: Nausea Genitourinary: Denies: Dysuria Musculoskeletal: Denies: Arthralgia Skin: Denies: Bruising Past Medical History - SOCIAL HISTORY Smoking Status: Never smoker Alcohol Use: None Drug Use: None - RESPIRATORY Hx Respiratory Disorders: Yes Hx Pneumonia: Yes (age 1) - CARDIOVASCULAR Hx Cardio Disorders: Yes Hx Chest Pain: Yes (2 days) Hx Hypertension: Yes Hx Irregular Heartbeat: Yes (Afib after knee surgery years ago) Comment:: High cholestrol - NEURO Hx Neuro Disorders: No - GI Hx GI Disorders: No - Hx Genitourinary Disorders: No - ENDOCRINE Hx Endocrine Disorders: No Hx Diabetes: No Hx Thyroid Disease: No - MUSCULOSKELETAL Hx Musculoskeletal Disorders: Yes Hx Arthritis: Yes - PSYCH Hx Psych Problems: No - HEMATOLOGY/ONCOLOGY Hx Hematology/Oncology Disorders: No Family Medical History Any Significant Family History?: Yes Hx Heart Disease: Father Physical Exam - General General Appearance: Alert, Oriented x3, Cooperative, No acute distress - Head Head exam: Atraumatic, Normocephalic, Normal inspection - Eye Eye exam: Normal appearance, PERRL - ENT Throat exam: Normal inspection. negative: Tonsillar erythema, Tonsillar exudate - Neck Neck exam: Normal inspection, Full ROM. negative: Tenderness - Respiratory Respiratory exam: Normal lung sounds bilaterally. negative: Respiratory distress - Cardiovascular Cardiovascular Exam: Normal heart sounds, Irregular rhythm. negative: Regular rate, Normal rhythm - GI/Abdominal GI/Abdominal exam: Soft, Normal bowel sounds. negative: Tenderness - Extremities Extremities exam: Normal inspection, Full ROM, Normal capillary refill. negative: Tenderness - Back Back exam: Reports: Normal inspection - Neurological Neurological exam: Alert, Normal gait, Oriented X3. negative: Abnormal gait, Motor sensory deficit - Psychiatric Psychiatric exam: negative: Anxious Course Vital Signs 01/02/19 02:29 Temperature 97.7 F Pulse Rate 75 Respiratory 22 Rate Blood Pressure 157/112 Pulse Ox 97 - Reevaluation(s) Reevaluation #1: The patient is doing a lot better at this time and he has no pain or discomfort. He is still feeling some discomfort with palpation of his chest and with arm lifting. I did explain to the patient and son that his lab work and EKG and xray are WNL's for him and that it does not demonstrate any acute cardiac issue. The pain at this time does appear to be musculoskeletal in nature. The patient does have a hx of an abnormal stress test in the past that he elected to do nothing about. Due to that fact I did recommend hospital admission for monitoring and repeat testing. The patient is refusing that plan and would like to go home. I did explain the risks of leaving are that the patient could go home and have an MT, stroke, become disabled and . The patient understands and accepts the risks and understands we cannot be held liable for NOT admitting and keeping him here. The patient presently has proper decision making capacity and his son also witnessed the conversation. The patient was directed to see Dr. Carpio in the [facility] next week and to return to the ER for any worsening symptoms. 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 Carpio next week. Please return to the ER for any problems. Referrals: [facility] [Provider Group] Forms: Patient Portal Access Time of Disposition: 03:26 Quality - Quality Measures Quality Measures: N/A - Blood Pressure Screening View Details: Yes Does Patient Have Any of the Following: Active Dx of HTN Blood Pressure Classification: Hypertensive Reading Systolic Measurement: 157 Diastolic Measurement: 112 Screening for High Blood Pressure: Patient Exclusion, Hx of HTN [G9744]
[2019-01-02 02:46] LABS: BASO % 0.9 % (0-6); EOS % 4.3 % (0-6); GRAN % 60.2 % (47-80); HEMATOCRIT 39.3 % (42.0-52.0); HEMOGLOBIN 12.1 gm/dl (14.0-18.0); LYMPH % 23.2 % (16-45); MEAN CELL VOLUME 96.3 fl (81-97); MEAN CORPUSCULAR HGB CONC 30.8 g/dl (32-36); MONO % 11.4 % (0-9); PLATELET COUNT 178 K/uL (130-400); RED BLOOD COUNT 4.08 M/uL (4.40-5.70); RED CELL DISTRIBUTION WIDTH 14.9 % (11.5-14.5); WHITE BLOOD COUNT W/O DIFF 4.7 K/uL (4.2-12.2)
[2019-01-02 02:47] LABS: MEAN CORPUSCULAR HEMOGLOBIN 29.6 pg (27-33)
[2019-01-02] MEDS: ASPIRIN 325 MG TABLET PO ONE ×2 (02:55→02:57)
[2019-01-02 02:58] LABS: INR 1.1; PARTIAL THROMBOPLASTIN TIME 31.4 SECONDS (24.5-39.1)
[2019-01-02 03:04] LABS: CREATININE 1.5 mg/dL (0.7-1.2)
[2019-01-02 03:05] LABS: BILIRUBIN,TOTAL 0.4 mg/dL (0.2-1.0); TOTAL PROTEIN 6.6 g/dL (6.6-8.7)
[2019-01-02 03:10] LABS: ALB/GLOB RATIO 1.3 (1.1-1.8); ALBUMIN 3.7 g/dL (4.0-5.0)
[2019-01-02 03:12] LABS: CKMB 2.9 ng/mL (<6.73)
--- NOTE | 2019-01-03 08:08 | RADIOLOGY REPORT ---
EXAM: CHEST, TWO VIEWS HISTORY: CHEST PAIN. TECHNIQUE: Two views of the chest were obtained. Comparison: Chest radiograph 05/22/17. FINDINGS: Borderline cardiac silhouette enlargement. The thoracic aorta is calcified and tortuous. No focal pulmonary consolidation. No significant pleural effusion or pneumothorax. Horizontal external artifact superimposes the lower chest and upper abdomen. IMPRESSION: NO ACUTE LUNG FINDINGS. JOB NUMBER: [id number] MTDD
== END 2019-01-02 03:48 | disposition home or self-care (01) ==
LOC: ER 02:22 → UNDOADMOB 03:26 → MEDSURG 03:26 → UNDODISOB 03:41
DX: I25.9 Chronic ischemic heart disease, unspecified (principal); E78.00 Pure hypercholesterolemia, unspecified; M19.90 Unspecified osteoarthritis, unspecified site
CPT/HCPCS: 71046; 80053; 82550; 82553; 84484; 85025; 85610; 85730; 93005; 93010; 99285

== ENCOUNTER 2019-02-14 15:40 | Emergency (ER) | payer MEDICARE, BC ==
--- NOTE | 2019-02-14 16:02 | Emergency Department Record ---
History of Present Illness - General Chief Complaint: General Stated Complaint: CRITICAL LABS Time Seen by Provider: 02/14/19 15:44 Source: Patient, Family Mode of Arrival: Ambulatory Limitations: No limitations - History of Present Illness Initial comments: The patient is here due to having worsening leg swelling for the last week. He denies any CP, SOB, KAN, or sweating. The patient did have an appointment with his PCP today and a BNP was drawn which was high so the patient was called to come to the ER for evaluation. The patient states he used to be on water pills in the past but not recently. Onset/Timin -: Week(s) - Sandro Coma Scale Eye Response: (4) Open spontaneously Motor Response: (6) Obeys commands Verbal Response: (5) Oriented Sandro Total: 15 - Related Data Previous Rx's Medication Instructions Recorded Furosemide [Lasix] 20 mg PO DAILY #7 tablet 02/14/19 Allergies Allergy/AdvReac Type Severity Reaction Status Date / Time atorvastatin calcium Allergy Intermediate SWELLING Verified 02/14/19 15:50 [From Lipitor] (GENERAL) Penicillins Allergy Intermediate PT UNSURE Verified 02/14/19 15:50 OF REACTION Travel Screening - Travel/Exposure Within Last 30 Days Have you traveled within the last 30 days?: No Review of Systems Constitutional: Denies: Chills, Fever Eyes: Denies: Eye discharge ENT: Denies: Congestion Respiratory: Denies: Cough, Dyspnea Cardiovascular: Denies: Arrhythmia, Chest pain Endocrine: Denies: Fatigue Gastrointestinal: Denies: Nausea Genitourinary: Denies: Dysuria Musculoskeletal: Denies: Arthralgia Skin: Denies: Bruising Past Medical History - SOCIAL HISTORY Smoking Status: Never smoker Alcohol Use: None Drug Use: None - RESPIRATORY Hx Respiratory Disorders: Yes Hx Pneumonia: Yes (age 1) - CARDIOVASCULAR Hx Cardio Disorders: Yes Hx Chest Pain: Yes Hx Hypertension: Yes Hx Irregular Heartbeat: Yes (Afib after knee surgery years ago) Comment:: High cholestrol - NEURO Hx Neuro Disorders: No - GI Hx GI Disorders: No - Hx Genitourinary Disorders: No - ENDOCRINE Hx Endocrine Disorders: No Hx Diabetes: No Hx Thyroid Disease: No - MUSCULOSKELETAL Hx Musculoskeletal Disorders: Yes Hx Arthritis: Yes - PSYCH Hx Psych Problems: No - HEMATOLOGY/ONCOLOGY Hx Hematology/Oncology Disorders: No Family Medical History Any Significant Family History?: Yes Hx Heart Disease: Father Physical Exam - General General Appearance: Alert, Oriented x3, Cooperative, No acute distress - Head Head exam: Atraumatic, Normocephalic, Normal inspection - Eye Eye exam: Normal appearance, PERRL, EOMI - ENT Throat exam: Normal inspection. negative: Tonsillar erythema, Tonsillar exudate - Neck Neck exam: Normal inspection, Full ROM. negative: Tenderness - Respiratory Respiratory exam: Rales (Lower 1/3 bilaterally.). negative: Normal lung sounds bilaterally, Accessory muscle use, Decreased breath sounds, Respiratory distress - Cardiovascular Cardiovascular Exam: Regular rate, Normal rhythm, Normal heart sounds - GI/Abdominal GI/Abdominal exam: Soft, Normal bowel sounds. negative: Tenderness - Extremities Extremities exam: Pedal edema (2+ bilaterally and chronic.). negative: Normal inspection - Neurological Neurological exam: Alert, Normal gait. negative: Abnormal gait, Motor sensory deficit - Psychiatric Psychiatric exam: negative: Anxious Course Vital Signs 02/14/19 15:45 Temperature 97.9 F Pulse Rate 83 Respiratory 20 Rate Blood Pressure 168/108 - Reevaluation(s) Reevaluation #1: The patient is doing very well at this time. He is very comfortable with no KAN, SOB, or fast breathing. I did discuss the lab results and the need for a diuretic. I also did discuss the case with Anika Villatoro (DAYCARE ASSISTANT) and she will relay the message to Shital Kline (DAYCARE ASSISTANT) who is the patient's PCP. Due to the patient having NO trouble breathing or SOB I do believe he is safe for discharge. We will start the patient on Lasix and he does have an appointment with his PCP in a week. 02/14/19 17:16 Reevaluation #2: The patient is doing very well at this time. He did urinate twice and had over 500cc's of fluid out. He is feeling very well with no CP, SOB, or KAN. The patient is to limit his fluid intake and to stop all salt intake in addition to starting the Lasix tomorrow. 02/14/19 17:47 Medical Decision Making - Data Complexity MDM Data: Labs Ordered and/or Reviewed, X-Ray Ordered and/or Reviewed, EKG Ordered and/or Reviewed - EKG Data -: EKG Interpreted by Me EKG: No Acute Changes, Unchanged From Previous - Radiology Data Radiology results: Report reviewed (CXR: Mild CMG with possible mild cephalization.) Disposition Disposition: Discharge Clinical Impression: Fluid overload, unspecified Qualifiers: Hypervolemia type: unspecified Qualified Code(s): E87.70 - Fluid overload, unspecified Disposition: Home, Self-Care Condition: (2) Stable Instructions: Leg Edema (ED) Additional Instructions: Please limit your fluid intake and do not eat any salt of salty foods. Continue the Lasix tomorrow and please see Shital on Thursday as planned in a week. Return to the ER for any problems. Prescriptions: Furosemide [Lasix] 20 mg PO DAILY #7 tablet Forms: Patient Portal Access Time of Disposition: 17:50 Quality - Quality Measures Quality Measures: N/A - Blood Pressure Screening View Details: Yes Does Patient Have Any of the Following: Active Dx of HTN Blood Pressure Classification: Hypertensive Reading Systolic Measurement: 168 Diastolic Measurement: 108 Screening for High Blood Pressure: Patient Exclusion, Hx of HTN [G9744]
[2019-02-14] MEDS ORDERED: FUROSEMIDE IV 40MG/4ML VIAL IVP ONE (16:47)
--- NOTE | 2019-02-15 11:14 | RADIOLOGY REPORT ---
EXAM: CHEST, TWO VIEWS HISTORY: LEG SWELLING. TECHNIQUE: Two views of the chest were obtained. Comparison: Chest radiograph 01/02/19. FINDINGS: Borderline cardiac silhouette enlargement, stable. The thoracic aorta is calcified and tortuous. Increased bibasilar interstitial pulmonary opacities. No significant pleural fluid collection. No visible pneumothorax. Degenerative changes in both shoulders. IMPRESSION: 1. BORDERLINE CARDIAC SILHOUETTE ENLARGEMENT, STABLE. 2. INCREASED BASILAR INTERSTITIAL OPACITIES, NONSPECIFIC, BUT COULD REPRESENT EDEMA. JOB NUMBER: [id number] [facility]
== END 2019-02-14 17:59 | disposition home or self-care (01) ==
LOC: ER 15:40
DX: E87.70 Fluid overload, unspecified (principal); R60.0 Localized edema; I48.91 Unspecified atrial fibrillation; R79.89 Other specified abnormal findings of blood chemistry; I10 Essential (primary) hypertension
CPT/HCPCS: 71046; 80053; 83880; 84484; 85025; 96374; 99284; J1940

== ENCOUNTER 2019-11-03 18:18 | Emergency (ER) | payer MEDICARE, BC ==
--- NOTE | 2019-11-03 18:58 | Emergency Department Record ---
History of Present Illness - General Chief complaint: Rash Stated complaint: SHINGLES Time Seen by Provider: 11/03/19 18:47 Source: Patient, Family Mode of Arrival: Wheelchair Limitations: No limitations - History of Present Illness Initial comments: The patient is here due to a worsening rash to the R side of the face for almost a week. The rash was mild until yesterday when it became much worse. He was at the yesterday and was diagnosed with shingles and was discharged on Valtrex. Today he did see his Opthomologist who said the R eye was not infected but did discharge the patient on Abx ointment and an antiviral for the R eye. Due to the rash being much worse today he did return to the but was sent to the ER for further evaluation. The patient has significant dementia and has had no CP, SOB, HSU, recent falls or speech difficulties. MD complaint: Rash Onset/Timin -: Week(s) Associated symptoms: Denies other symptoms Treatments Prior to Arrival: Other - Related Data Allergies Allergy/AdvReac Type Severity Reaction Status Date / Time atorvastatin calcium Allergy Intermediate SWELLING Unverified 11/03/19 16:56 [From Lipitor] (GENERAL) Penicillins Allergy Intermediate PT UNSURE Unverified 11/03/19 16:56 OF REACTION Travel/Exposure Screening - Travel/Exposure Within Last 30 Days Have you traveled within the last 30 days?: No - Travel/Exposure Within Last Year Have you traveled outside the [place] in the last year?: No - Additonal Travel/Exposure Details Have you been exposed to anyone with a communicable illness?: No - Travel Symptoms Symptom Screening: None Review of Systems Constitutional: Denies: Chills, Fever Eyes: Denies: Eye discharge ENT: Denies: Congestion Respiratory: Denies: Cough Cardiovascular: Denies: Arrhythmia Past Medical History - SOCIAL HISTORY Smoking Status: Never smoker Alcohol Use: None Drug Use: None - RESPIRATORY Hx Respiratory Disorders: Yes Hx Pneumonia: Yes (age 1) - CARDIOVASCULAR Hx Cardio Disorders: Yes Hx Chest Pain: Yes Hx Hypertension: Yes Hx Irregular Heartbeat: Yes (Afib after knee surgery years ago) Comment:: High cholestrol - NEURO Hx Neuro Disorders: No - GI Hx GI Disorders: No - Hx Genitourinary Disorders: No - ENDOCRINE Hx Endocrine Disorders: No Hx Diabetes: No Hx Thyroid Disease: No - MUSCULOSKELETAL Hx Musculoskeletal Disorders: Yes Hx Arthritis: Yes - PSYCH Hx Psych Problems: No - HEMATOLOGY/ONCOLOGY Hx Hematology/Oncology Disorders: No Family Medical History Any Significant Family History?: No Hx Heart Disease: Father Physical Exam - General General Appearance: Alert, Cooperative, No acute distress - Head Head exam: Atraumatic. negative: Normocephalic, Normal inspection (There is a vesicular rash to the R superior facial area which does appear to be shingles.) - Eye Eye exam: PERRL, Conjunctival injection (Mild R eye.), Periorbital swelling (mild R eye only.). negative: Normal appearance - ENT Throat exam: Normal inspection. negative: Tonsillar erythema, Tonsillar exudate - Neck Neck exam: Normal inspection, Full ROM. negative: Tenderness - Respiratory Respiratory exam: Normal lung sounds bilaterally. negative: Respiratory distress - Cardiovascular Cardiovascular Exam: Regular rate, Normal rhythm, Normal heart sounds - GI/Abdominal GI/Abdominal exam: Soft, Normal bowel sounds. negative: Tenderness - Extremities Extremities exam: Normal inspection, Full ROM, Normal capillary refill. negative: Tenderness - Neurological Neurological exam: Alert. negative: Motor sensory deficit - Psychiatric Psychiatric exam: negative: Anxious - Skin Skin exam: Rash (R upper face.) Course Vital Signs 11/03/19 18:19 Temperature 98.2 F Pulse Rate 70 Respiratory 16 Rate Blood Pressure 154/87 Pulse Ox 95 - Reevaluation(s) Reevaluation #1: The patient does have a very significant case of SHingles to the R side of the face. He has had no other issues recently and I do believe he will need IV Acyclovir. I did check with staff and did find out we do not carry that medicine. Due to that fact I do believe he will need to be transferred. The patient's [place] [facility] [place] I did discuss the case with Dr. Lopez and he did accept the patient as a direct admission. 11/03/19 19:42 Medical Decision Making - Data Complexity MDM Data: Labs Ordered and/or Reviewed - Lab Data Result diagrams: 11/03/19 18:30 11/03/19 18:30 Disposition Disposition: Transfer Clinical Impression: Herpes zoster Qualifiers: Herpes zoster complications: unspecified herpes zoster complication Qualified Code(s): B02.8 - Zoster with other complications Disposition: Acute Care Hospital Transfer [place] [facility] [place] For Transfer: IV Acyclovir Accepting Physician: John Time Discussed w/Accepting Physician: 19:44 Condition: (2) Stable Instructions: Acute Rash (ED) Forms: Patient Portal Access Time of Disposition: 19:44 Quality - Quality Measures Quality Measures: N/A - Blood Pressure Screening View Details: Yes Does Patient Have Any of the Following: No Blood Pressure Classification: Pre-Hypertensive BP Reading Systolic Measurement: 154 Diastolic Measurement: 87 Screening for High Blood Pressure: < Pre-Hypertensive BP, F/U Documented > [G8950] Pre-Hypertensive Follow-up Interventions: Referral to alternative/primary care provider.
[2019-11-03 19:00] LABS: ABSOLUTE NEUTROPHIL COUNT 3.25; BASO % 0.8 % (0-6); EOS % 2.5 % (0-6); GRAN % 68.5 % (47-80); HEMATOCRIT 41.8 % (42.0-52.0); HEMOGLOBIN 12.9 gm/dl (14.0-18.0); LYMPH % 16.6 % (16-45); MEAN CELL VOLUME 94.6 fl (81-97); MEAN CORPUSCULAR HGB CONC 30.9 g/dl (32-36); MEAN PLATELET VOLUME 9.3 fl (7.4-10.4); MONO % 11.6 % (0-9); PLATELET COUNT 171 K/uL (130-400); RED BLOOD COUNT 4.42 M/uL (4.40-5.70); WHITE BLOOD COUNT W/O DIFF 4.8 K/uL (4.2-12.2)
[2019-11-03 19:01] LABS: MEAN CORPUSCULAR HEMOGLOBIN 29.1 pg (27-33)
[2019-11-03 19:13] LABS: BILIRUBIN,TOTAL 0.7 mg/dL (0.2-1.0); CREATININE 1.6 mg/dL (0.7-1.2)
[2019-11-03 19:14] LABS: TOTAL PROTEIN 7.9 g/dL (6.6-8.7)
[2019-11-03 19:18] LABS: ALB/GLOB RATIO 1.1 (1.1-1.8); ALBUMIN 4.1 g/dL (4.0-5.0); C-REACTIVE PROTEIN 0.85 mg/dL (<0.5)
== END 2019-11-03 20:17 | disposition short-term general hospital (02) ==
LOC: ER 18:18
DX: B02.8 Zoster with other complications (principal); I10 Essential (primary) hypertension; F03.90 Unspecified dementia, unspecified severity, without behavioral disturbance, psychotic disturbance, mood disturbance, and anxiety
CPT/HCPCS: 80053; 85025; 86140; 99284; 99285